=== PATIENT | female | born 1960 | race Caucasian/White ===

== ENCOUNTER → 2016-08-21 | Outpatient (CLI) | payer OTHER ==
[2015-02-05 19:24] VITALS: BP 159/92
[~2016-08-21] MED LIST: ALPR0.25 PO; BARIUM SULFATE 2.1% 450 ML SUSP PO ONE; CHOL500015 PO; LEVO88TA4 PO; LORA-434 PO; MECL-51 PO; MULT9LIQ5 PO; OMEP20CA9 PO; SPIR100T PO
[2016-08-21 10:12] LABS: BASO # 0.1 x10^3/uL (0.0-0.2); BASO % 1 % (0-3); EOS % 2 % (0-3); HEMATOCRIT 43.6 % (36.0-47.0); HEMOGLOBIN 14.3 g/dL (12.0-15.5); LYMPH # 1.5 x10^3/uL (1.0-4.8); LYMPH % 13 % (24-48); MEAN CORPUSCULAR HEMOGLOBIN 26 pg (25-35); MEAN CORPUSCULAR HGB CONC 33 g/dL (31-37); MEAN CORPUSCULAR VOLUME 79 fL (79-100); MONO % 4 % (0-9); NEUT % 80 % (31-73); PLATELET COUNT 339 x10^3/uL (140-400); RED BLOOD COUNT 5.51 x10^6/uL (3.50-5.40); RED CELL DISTRIBUTION WIDTH 15.4 % (11.5-14.5)
[2016-08-21 10:36] LABS: BILIRUBIN,URINE NEGATIVE (NEG); GLUCOSE,URINE NEGATIVE (NEG); NITRITE,URINE NEGATIVE (NEG); PH,URINE 6.5; PROTEIN,URINE NEGATIVE (NEG-TRACE); UROBILINOGEN,URINE 0.2 mg/dL (0.2 mg/dL)
[2016-08-21 10:55] LABS: BACTERIA,URINE FEW /HPF (0-FEW); RBC,URINE 0 /HPF (0-2); SQUAMOUS EPITHELIAL CELL,UR MOD /LPF
--- NOTE | 2016-08-21 12:49 | RAD ---
CT abdomen and pelvis without IV contrast History: Left lower quadrant pain, previous history of diverticulitis. Comparison: CT abdomen pelvis 10/09/2012. Technique: After administration of oral contrast only, helical CT of the abdomen and pelvis was performed from the lung bases through the ischial tuberosities. Axial, sagittal, and coronal reconstructions were obtained. One or more of the following individualized dose reduction techniques were utilized for the study: Automated exposure control Adjustment of mA and/or kV according to patient's size Use of iterative reconstruction technique. Findings: Evaluation of solid organs is limited by lack of intravenous contrast. Liver, spleen, pancreas, gallbladder, and bilateral adrenal glands are unremarkable. Bilateral kidneys are without evidence of stone or obstruction. There is no evidence of bowel obstruction. No free air is identified in the abdomen or pelvis. Appendix appears within normal limits. Urinary bladder is unremarkable. Uterus demonstrates coarse calcification, compatible with degenerated leiomyoma. Right ovary is unremarkable. Left ovary demonstrates a 3.9 cm cyst. Colonic diverticulosis is noted. There is inflammatory change involving the distal descending colon, compatible with acute diverticulitis. No perforation or abscess is identified.. Impression: 1. Acute diverticulitis of the descending colon. No perforation or abscess is seen. 2. 3.9 cm left ovarian cystic lesion. Recommend follow-up pelvic ultrasound in one year.
== END | disposition home or self-care (01) ==
LOC: CT 09:50
PROVIDERS: ATTEND Family Medicine
DX: R10.32 Left lower quadrant pain (principal); Z87.19 Personal history of other diseases of the digestive system
CPT/HCPCS: 36415; 74176; 81001; 85027; 87086

== ENCOUNTER → 2016-09-03 | Outpatient (CLI) | payer OTHER ==
[2015-02-05 19:24] VITALS: BP 159/92
[~2016-09-03] MED LIST changes: -BARIUM SULFATE 2.1% 450 ML SUSP PO ONE; +PRED20TA PO
[2016-09-04 10:21] LABS: CA 125 13.5 U/mL (0.0-38.1)
[2016-09-04 11:26] LABS: FSH 12.7 mIU/mL (.); LUTEINIZING HORMONE 8.3 mIU/mL (.)
== END | disposition home or self-care (01) ==
LOC: LAB 16:13
PROVIDERS: ATTEND Obstetrics & Gynecology
DX: N83.202 Unspecified ovarian cyst, left side (principal)
CPT/HCPCS: 36415; 83001; 83002; 86304

== ENCOUNTER 2016-09-06 07:50 | Emergency (ER) | payer OTHER ==
[~2016-09-06] VITALS: Ht 157.5 cm; Wt 122.5 kg
[~2016-09-06 07:50] MED LIST changes: -PRED20TA PO
--- NOTE | 2016-09-06 08:26 | PHYS DOC ---
Past Medical History Past Medical History: Diverticulitis, GERD, Hypertension, Other Additional Past Medical Histor: chronic back pain, thyroid disease Past Surgical History: Knee Replacement, Tubal ligation Additional Past Surgical Histo: removal of benign cyst to L breast, lap band Alcohol Use: None Drug Use: None Adult General Chief Complaint Chief Complaint: SKIN RASH/ABSCESS HPI HPI Patient is a 56 year old female who presents with diffuse hives starting 2 days ago. She denies any change in household products or new medications. 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 She states that she has also been taking Benadryl with the last dose taken at 0400 today. She feels like the hives and itching are worse today despite the medications. She has not had any difficulty breathing or angioedema. Her PCP is Dr. Vincent. Review of Systems Review of Systems Constitutional: Denies fever or chills. [] Eyes: Denies change in visual acuity, redness, or eye pain. [] HENT: Denies ear pain, nasal congestion or sore throat. Denies angioedema. Respiratory: Denies cough or shortness of breath. [] Musculoskeletal: Denies back pain or joint pain. [] Integument: Reports diffuse hives. Neurologic: Denies headache, focal weakness or sensory changes. [] Current Medications Current Medications Current Medications Medications (Trade) Dose Ordered Sig/Shlomo Start Time Stop Time Status Last Admin Dose Admin Diphenhydramine HCl (Benadryl) 50 mg 1X ONCE 09/06/16 08:30 09/06/16 08:31 DC 09/06/16 08:32 50 MG Famotidine (Pepcid) 20 mg 1X ONCE 09/06/16 08:30 09/06/16 08:31 DC 09/06/16 08:32 20 MG Prednisone (Prednisone) 50 mg 1X ONCE 09/06/16 08:30 09/06/16 08:31 DC 09/06/16 08:32 50 MG Allergies Allergies Allergies Coded Allergies Type Severity Reaction Last Updated Verified Iodinated Contrast Media - Oral and Allergy Severe Anaphylaxis 10/24/14 Yes codeine Allergy Intermediate Nausea 10/24/14 Yes morphine Allergy Intermediate Nausea and Vomiting 10/24/14 Yes cefazolin Allergy Mild Hives 10/24/14 Yes Physical Exam Physical Exam Constitutional: Well developed, well nourished, no acute distress, non-toxic appearance. [] HENT: Normocephalic, atraumatic, bilateral external ears normal, oropharynx moist, no oral exudates, nose normal. No angioedema. Eyes: PERRLA, EOMI, conjunctiva normal, no discharge. [] Neck: Normal range of motion, no tenderness, supple, no stridor. [] Cardiovascular: Heart rate regular rhythm, no murmur [] Lungs & Thorax: Bilateral breath sounds clear to auscultation without wheezes, rales, or rhonchi. Skin: Warm, dry. Diffuse urticaria. Back: No tenderness, no CVA tenderness. [] Extremities: No tenderness, no cyanosis, no clubbing, ROM intact, no edema. [] Neurologic: Alert and oriented X 3, normal motor function, normal sensory function, no focal deficits noted. [] Psychologic: Affect normal, judgement normal, mood normal. [] Current Patient Data Vital Signs Vital Signs Date Time Temp Pulse Resp B/P Pulse Ox O2 Delivery O2 Flow Rate FiO2 09/06/16 08:05 99.0 115 18 96 Room Air 99.0 EKG EKG [] Radiology/Procedures Radiology/Procedures [] Course & Med Decision Making Course & Med Decision Making Pertinent Labs and Imaging studies reviewed. (See chart for details) The patient presents with urticaria of unknown etiology. She had a steroid injection yesterday and has been taking Benadryl without relief. She does not have any signs of anaphylaxis. She is given IM Benadryl and po Pepcid and prednisone in the emergency department. She is discharged home with prescription for prednisone and instructions to continue Benadryl and Pepcid at home. Return precautions were discussed. The patient verbalizes understanding and agrees with plan. Dragon Disclaimer Dragon Disclaimer This electronic medical record was generated, in whole or in part, using a voice recognition dictation system. Departure Departure Impression: Primary Impression: Urticaria Disposition: 01 HOME, SELF-CARE Condition: IMPROVED Referrals: Suzan VINCENT MD (PCP) Patient Instructions: Hives, [id number] Additional Instructions: You were seen for hives caused by an unknown source. You were given Benadryl, Pepcid, and prednisone in the emergency department. Please complete all of the prescribed steroids, even if your hives have resolved. Begin taking the pills tomorrow. Please follow up with your doctor if your hives continue. Return to the emergency department if you have difficulty breathing, swelling of the lips or tongue, or other new or concerning symptoms. Scripts Prednisone 20 Mg [id number] Mg PO DAILY 4 Days Begin taking on 09/07/16. Prov:MAI ANAYA 09/06/16 MAI ANAYA Sep 06, 2016 08:26
[2016-09-06] MEDS ORDERED: FAMOTIDINE 20 MG TABLET. PO ONE (08:30)
[2016-09-06] MEDS ORDERED: DIPHENHYDRAMINE 50 MG/ML VIAL IM ONE (08:30)
[2016-09-06] MEDS ORDERED: PREDNISONE 10 MG TABLET PO ONE (08:30)
[2016-09-06] MEDS ORDERED: PRED20TA PO (09:08)
[2016-09-06 10:02] VITALS: BP 131/81
== END 2016-09-06 10:23 | disposition home or self-care (01) ==
LOC: ER 07:50
DX: L50.9 Urticaria, unspecified (principal); I10 Essential (primary) hypertension; G89.29 Other chronic pain; Z88.5 Allergy status to narcotic agent; Z88.6 Allergy status to analgesic agent; Z88.1 Allergy status to other antibiotic agents; Z91.041 Radiographic dye allergy status
CPT/HCPCS: 96372; 99283; J1200; J7512

== ENCOUNTER → 2016-11-18 | Outpatient (CLI) | payer OTHER ==
[~2016-11-18] MED LIST changes: +PRED20TA PO
[2016-11-18 15:45] LABS: BASO # 0.1 x10^3/uL (0.0-0.2); BASO % 1 % (0-3); EOS % 2 % (0-3); HEMATOCRIT 43.2 % (36.0-47.0); HEMOGLOBIN 13.7 g/dL (12.0-15.5); LYMPH # 1.9 x10^3/uL (1.0-4.8); LYMPH % 17 % (24-48); MEAN CORPUSCULAR HEMOGLOBIN 26 pg (25-35); MEAN CORPUSCULAR HGB CONC 32 g/dL (31-37); MEAN CORPUSCULAR VOLUME 82 fL (79-100); MONO % 6 % (0-9); NEUT % 74 % (31-73); PLATELET COUNT 273 x10^3/uL (140-400); RED BLOOD COUNT 5.28 x10^6/uL (3.50-5.40); RED CELL DISTRIBUTION WIDTH 16.1 % (11.5-14.5); WHITE BLOOD COUNT 11.2 x10^3/uL (4.0-11.0)
[2016-11-18 16:08] LABS: % SAT IRON 13 % (15-34); IRON,SERUM 41 ug/dL (50-170)
[2016-11-18 16:10] LABS: ALBUMIN 3.8 g/dL (3.4-5.0); ALBUMIN/GLOBULIN RATIO 0.9 (1.0-1.7); CALCIUM 8.8 mg/dL (8.5-10.1); CREATININE 1.1 mg/dL (0.6-1.0); GFR 51.6; POTASSIUM 3.9 mmol/L (3.5-5.1); TOTAL BILIRUBIN 0.3 mg/dL (0.2-1.0); TOTAL PROTEIN 7.9 g/dL (6.4-8.2)
== END | disposition home or self-care (01) ==
LOC: LAB 15:21
PROVIDERS: ATTEND Family Medicine
DX: R10.84 Generalized abdominal pain (principal); D64.9 Anemia, unspecified
CPT/HCPCS: 36415; 80053; 83540; 83550; 85027

== ENCOUNTER → 2017-04-04 | Outpatient (CLI) | payer OTHER ==
[~2017-04-04] MED LIST changes: +ASCO10002 PO; -CHOL500015 PO; +CHOL500045 PO; +DEXL60CA2 PO; +FERR-36 PO; +LACT1CAP29 PO; +LEVO100T5 PO; +MECL25TA3 PO; +PHEN37.5 PO
--- NOTE | 2017-04-07 14:57 | RAD ---
DATE: 04/07/2017 EXAM: DIGITAL SCREEN BILAT W/CAD HISTORY: Screening study. COMPARISON: 04/03/2016 This study was interpreted with the benefit of Computerized Aided Detection (CAD). The breast parenchyma is heterogeneously dense, which could reduce sensitivity of mammography. Breast parenchyma level C. FINDINGS: Digital MLO and CC mammograms of both breasts were obtained. Comparison study is dated 04/03/2016. The breast parenchyma is heterogeneously dense which can obscure a lesion on mammography (breast density code C). No spiculated mass is seen. Benign-appearing calcifications are seen scattered throughout both breasts. No malignant appearing calcification or area of architectural distortion is noted. Since the previous examination there has been no significant interval change. IMPRESSION: BI-RADS Category 1, negative. There is no mammographic evidence of malignancy. Routine yearly screening mammography is recommended for follow-up. BI-RADS CATEGORY: 1 NEGATIVE RECOMMENDED FOLLOW-UP: 12M 12 MONTH FOLLOW-UP PQRS compliance statement: Patient information was entered into a reminder system with a target due date 04/07/2018 for the next mammogram. Mammography is a sensitive method for finding small breast cancers, but it does not detect them all and is not a substitute for careful clinical examination. A negative mammogram does not negate a clinically suspicious finding and should not result in delay in biopsying a clinically suspicious abnormality. "Our facility is accredited by the [employer] Mammography [employer]."
== END | disposition home or self-care (01) ==
LOC: MAMMO 15:16
PROVIDERS: ATTEND Family Medicine
DX: Z12.31 Encounter for screening mammogram for malignant neoplasm of breast (principal)
CPT/HCPCS: G0202; 77067

== ENCOUNTER → 2017-12-09 | Day surgery (SDC) | payer OTHER ==
[~2017-12-09] MED LIST changes: -ALPR0.25 PO; -ASCO10002 PO; -CHOL500045 PO; -DEXL60CA2 PO; -FERR-36 PO; -LACT1CAP29 PO; -LEVO100T5 PO; -LEVO88TA4 PO; +LIDOCAINE 1% PF 2 ML VIAL. ID; +LIDOCAINE 2% PF Vial for OR 5 ML VIAL.; -LORA-434 PO; -MECL-51 PO; -MECL25TA3 PO; -MULT9LIQ5 PO; -OMEP20CA9 PO; +ONDANSETRON PF 4 MG/2 ML VIAL. IV; -PHEN37.5 PO; -PRED20TA PO; +PROCHLORPERAZINE 10 MG/2 ML VIAL. IV; +PROPOFOL 0 ML IV; -SPIR100T PO; +fentaNYL PF VIAL 100 MCG/2 ML VIAL IV
[2017-12-09] MEDS: IV RINGERS,LACTATED 1000ML 1,000 ML IV (12:49)
== END | disposition home or self-care (01) ==
LOC: ENDOS 12:18
DX: K29.50 Unspecified chronic gastritis without bleeding (principal); K21.9 Gastro-esophageal reflux disease without esophagitis; E03.9 Hypothyroidism, unspecified; I10 Essential (primary) hypertension; E78.5 Hyperlipidemia, unspecified; D50.9 Iron deficiency anemia, unspecified; F41.0 Panic disorder [episodic paroxysmal anxiety]; H81.09 Meniere's disease, unspecified ear; G43.909 Migraine, unspecified, not intractable, without status migrainosus; Z98.51 Tubal ligation status; Z98.890 Other specified postprocedural states; Z98.84 Bariatric surgery status; Z83.6 Family history of other diseases of the respiratory system; Z80.1 Family history of malignant neoplasm of trachea, bronchus and lung; Z80.3 Family history of malignant neoplasm of breast; Z82.49 Family history of ischemic heart disease and other diseases of the circulatory system; Z88.5 Allergy status to narcotic agent; Z91.041 Radiographic dye allergy status; Z88.8 Allergy status to other drugs, medicaments and biological substances; Z79.899 Other long term (current) drug therapy
CPT/HCPCS: 43239; J2704

== ENCOUNTER → 2018-01-07 | Outpatient (CLI) | payer OTHER ==
[2018-01-07 09:13] LABS: IRON,SERUM 65 ug/dL (50-170)
[2018-01-07 09:14] LABS: URIC ACID 5.6 mg/dL (2.6-6.0)
[2018-01-07 09:14] LABS: CHOLESTEROL 164 mg/dL (0-200); HDLC 42 mg/dL (40-60); LDLC 103 mg/dL (0-100); NON-HDL CHOLESTEROL 122 mg/dL (0-129); TRIGLYCERIDES 94 mg/dL (0-150); VLDLC 19 mg/dL (0-40)
[2018-01-07 09:15] LABS: CHOLESTEROL/HDL RATIO 3.9
[2018-01-07 09:48] LABS: SEDIMENTATION RATE 29 (0-25)
== END | disposition home or self-care (01) ==
LOC: LAB 08:23
DX: M79.1 Myalgia (principal); D50.9 Iron deficiency anemia, unspecified; R79.89 Other specified abnormal findings of blood chemistry
CPT/HCPCS: 36415; 80061; 83540; 84550; 85651; 86141

== ENCOUNTER → 2018-01-19 | Outpatient (CLI) | payer OTHER ==
[2018-01-19 12:44] LABS: ALBUMIN 3.4 g/dL (3.4-5.0); ALBUMIN/GLOBULIN RATIO 0.8 (1.0-1.7); ALK PHOS 60 U/L (46-116); ALT (SGPT) 16 U/L (14-59); ANION GAP 9 (6-14); AST (SGOT) 8 U/L (15-37); BLOOD UREA NITROGEN 15 mg/dL (7-20); BUN/CREATININE RATIO 15 (6-20); CARBON DIOXIDE 26 mmol/L (21-32); CHLORIDE 102 mmol/L (98-107); CREATINE KINASE 42 U/L (26-192); GFR 57.4; GLUCOSE 97 mg/dL (70-99); POTASSIUM 4.1 mmol/L (3.5-5.1); SODIUM 137 mmol/L (136-145); TOTAL BILIRUBIN 0.4 mg/dL (0.2-1.0); TOTAL PROTEIN 7.9 g/dL (6.4-8.2)
[2018-01-19 20:15] LABS: RHEUMATOID FACTOR <10.0 IU/mL (0.0-13.9)
[2018-01-21 17:17] LABS: ANA INTERP Positive (.)
== END | disposition home or self-care (01) ==
LOC: LAB 11:48
DX: M79.1 Myalgia (principal); M25.50 Pain in unspecified joint
CPT/HCPCS: 36415; 80053; 82550; 86038; 86431

== ENCOUNTER → 2018-01-30 | Outpatient (CLI) | payer OTHER ==
[2018-01-30 22:15] LABS: ESTRADIOL LEVEL 39.1 pg/mL (.)
[2018-01-30 22:15] LABS: FSH 19.5 mIU/mL (.)
== END | disposition home or self-care (01) ==
LOC: LAB 11:37
DX: N91.2 Amenorrhea, unspecified (principal)
CPT/HCPCS: 36415; 82670; 83001

== ENCOUNTER → 2018-03-02 | Outpatient (CLI) | payer OTHER ==
[2018-03-03 22:18] LABS: HEMOGLOBIN A1C 5.4 % (4.8-5.6)
== END | disposition home or self-care (01) ==
LOC: LAB 07:51
DX: Z13.1 Encounter for screening for diabetes mellitus (principal); I10 Essential (primary) hypertension; E78.5 Hyperlipidemia, unspecified; M17.12 Unilateral primary osteoarthritis, left knee; E03.9 Hypothyroidism, unspecified; G43.909 Migraine, unspecified, not intractable, without status migrainosus; K21.9 Gastro-esophageal reflux disease without esophagitis; D50.9 Iron deficiency anemia, unspecified; R79.89 Other specified abnormal findings of blood chemistry; Z87.19 Personal history of other diseases of the digestive system; Z80.3 Family history of malignant neoplasm of breast; Z80.1 Family history of malignant neoplasm of trachea, bronchus and lung; Z98.84 Bariatric surgery status; Z82.49 Family history of ischemic heart disease and other diseases of the circulatory system
CPT/HCPCS: 36415; 83036

== ENCOUNTER → 2018-04-07 | Outpatient (CLI) | payer OTHER ==
[2017-12-09 13:25] VITALS: BP 112/58
[~2018-04-07] MED LIST changes: +ALPR0.25 PO; +ASCO10002 PO; +CHOL500045 PO; +DEXL60CA2 PO; +FERR-36 PO; +LACT1CAP29 PO; +LEVO100T5 PO; +LEVO88TA4 PO; -LIDOCAINE 1% PF 2 ML VIAL. ID; -LIDOCAINE 2% PF Vial for OR 5 ML VIAL.; +LORA-434 PO; +MECL-51 PO; +MECL25TA3 PO; +MULT9LIQ5 PO; +OMEP20CA9 PO; -ONDANSETRON PF 4 MG/2 ML VIAL. IV; +PHEN37.5 PO; +PRAV40TA2 PO; +PRED20TA PO; -PROCHLORPERAZINE 10 MG/2 ML VIAL. IV; -PROPOFOL 0 ML IV; +SPIR100T PO; -fentaNYL PF VIAL 100 MCG/2 ML VIAL IV
--- NOTE | 2018-04-08 09:35 | RAD ---
DATE: 04/07/2018 EXAM: MAMMO ENEIDA SCREENING BILATERAL HISTORY: Routine screening COMPARISON: 04/04/2017 This study was interpreted with the benefit of Computerized Aided Detection (CAD). The breast parenchyma is heterogeneously dense, which could reduce sensitivity of mammography. Breast parenchyma level C. FINDINGS: 2-D and 3-D tomosynthesis imaging was performed in CC and MLO projections. The breasts are quite heterogeneous and multinodular in character. No spiculated mass or architectural distortion is seen. Numerous bilateral microcalcifications are again noted. The distribution suggests a benign etiology. IMPRESSION: Stable mammograms without evidence of malignancy. BI-RADS CATEGORY: 2 BENIGN FINDING(S) RECOMMENDED FOLLOW-UP: 12M 12 MONTH FOLLOW-UP PQRS compliance statement: Patient information was entered into a reminder system with a target due date for the next mammogram. Mammography is a sensitive method for finding small breast cancers, but it does not detect them all and is not a substitute for careful clinical examination. A negative mammogram does not negate a clinically suspicious finding and should not result in delay in biopsying a clinically suspicious abnormality. "Our facility is accredited by the [employer] Mammography [employer]."
== END | disposition home or self-care (01) ==
LOC: MAMMO 15:19
PROVIDERS: ATTEND Family Medicine
DX: Z12.31 Encounter for screening mammogram for malignant neoplasm of breast (principal); I10 Essential (primary) hypertension; E78.5 Hyperlipidemia, unspecified; M17.12 Unilateral primary osteoarthritis, left knee; E03.9 Hypothyroidism, unspecified; G43.909 Migraine, unspecified, not intractable, without status migrainosus; K21.9 Gastro-esophageal reflux disease without esophagitis; Z86.2 Personal history of diseases of the blood and blood-forming organs and certain disorders involving the immune mechanism; Z87.19 Personal history of other diseases of the digestive system; Z88.1 Allergy status to other antibiotic agents; Z88.8 Allergy status to other drugs, medicaments and biological substances; Z88.5 Allergy status to narcotic agent; Z83.6 Family history of other diseases of the respiratory system; Z80.3 Family history of malignant neoplasm of breast; Z80.1 Family history of malignant neoplasm of trachea, bronchus and lung
CPT/HCPCS: 77063; 77067

== ENCOUNTER → 2018-10-26 | Outpatient (CLI) | payer OTHER ==
[2017-12-09 13:25] VITALS: BP 112/58
[~2018-10-26] MED LIST changes: +CYCL10TA2 PO; +DICL50TA2 PO; +HYDR-3164 PO; +OMEP20CA10 PO; -OMEP20CA9 PO; +ONDA4TAB12 PO
--- NOTE | 2018-10-26 16:15 | RAD ---
PQRS Compliance statement: One or more of the following individualized dose reduction techniques were utilized for this examination: 1. Automated exposure control. 2. Adjustment of the mA and/or kV according to patient size. 3. Use of iterative reconstruction technique. Indication:DIVERTICULITIS OF LARGE INTESTINE
PO ONLY READI-CAT DUE TO IODINE ALLERGY
PREVIOUS TECHNIQUE: CT abdomen and pelvis without IV contrast with multiplanar reformats. COMPARISON: 08/21/2016 FINDINGS: Limited evaluation of solid abdominal and pelvic organs due to lack of IV contrast. Heart is normal in size. No pericardial or pleural effusion. Clear lung bases. Noncontrast appearance of the liver, spleen, gallbladder, pancreas, adrenals and kidneys is within normal limits. No enlarged retroperitoneal or pelvic adenopathy. No free pelvic fluid or ascites. Calcified fibroid is seen in the fundus of the gallbladder. Redemonstrated is a 6.0 x 4.5 cm low attenuating lesion in the left ovary, previously 4.7 x 4.1 cm. Urinary bladder demonstrates no radiopaque stones. Sigmoid and descending colon diverticulosis. No diverticulitis. No bowel obstruction. Normal appendix. No pneumoperitoneum. No suspicious bony lesion. IMPRESSION: Limited evaluation of solid abdominal and pelvic organs due to lack of IV contrast. 1. Sigmoid and descending colon diverticulosis without diverticulitis. 2. Calcified fibroid in the fundus of the uterus. 3. Slight interval increase in the size of left ovarian low attenuating lesion most likely simple cysts. Nonemergent ultrasound of the pelvis recommended. Electronically signed by: Jt Boggs DO (10/26/2018 4:12 PM) [facility]
== END | disposition home or self-care (01) ==
LOC: CT 11:53
PROVIDERS: ATTEND Family Medicine
DX: K57.30 Diverticulosis of large intestine without perforation or abscess without bleeding (principal); D25.9 Leiomyoma of uterus, unspecified
CPT/HCPCS: 74176

== ENCOUNTER → 2018-11-11 | Outpatient (CLI) | payer OTHER ==
[2017-12-09 13:25] VITALS: BP 112/58
--- NOTE | 2018-11-11 16:01 | RAD ---
Lumbar spine, 5 views, 11/11/2018: HISTORY: Low back pain The lumbar vertebral heights are well-maintained. The intervertebral disc spaces are fairly well preserved. There are mild scattered marginal spurs. There are moderate sclerotic changes involving the facet joints bilaterally at L4-5 and L5-S1. There is a minimal associated anterolisthesis at L4-5. No fracture is evident. A coarse pelvic calcification is most likely a uterine fibroid. IMPRESSION: 1. Moderate facet joint arthropathy in the lower lumbar spine with a minimal associated anterolisthesis at L4-5. 2. No acute bony abnormality is detected. Electronically signed by: Jak Balbuena MD (11/11/2018 3:58 PM) [facility]
== END | disposition home or self-care (01) ==
LOC: US 15:04
PROVIDERS: ATTEND Family Medicine
DX: M12.88 Other specific arthropathies, not elsewhere classified, other specified site (principal); M43.16 Spondylolisthesis, lumbar region
CPT/HCPCS: 72110

== ENCOUNTER 2018-11-15 14:53 | Emergency (ER) | payer OTHER ==
[~2018-11-15] VITALS: Ht 154.9 cm; Wt 119.3 kg
[~2018-11-15 14:53] MED LIST changes: -CYCL10TA2 PO; -DICL50TA2 PO; -HYDR-3164 PO; -ONDA4TAB12 PO
[2018-11-15 15:05] VITALS: BP 170/96
--- NOTE | 2018-11-15 15:31 | PHYS DOC ---
Past Medical History Past Medical History: Diverticulitis, GERD, Hypertension, Other Additional Past Medical Histor: chronic back pain, thyroid disease Past Surgical History: Knee Replacement, Tubal ligation Additional Past Surgical Histo: removal of benign cyst to L breast, lap band Alcohol Use: None Drug Use: None Adult General Chief Complaint Chief Complaint: MECHANICAL FALL HPI HPI Patient is a 58 year old female with history of hypertension, acid reflex, who presents to the ED today complaining of 8 out of 10 sharp intermittent left hand , left wrist, and left shoulder pain that began yesterday after she stepped off a curb and fell landing on her left side. Patient denies any loss of consciousness. Denies hitting her head on the ground. She states most of her pain is on range of motion especially of the shoulder. Review of Systems Review of Systems Constitutional: Denies fever or chills [] Eyes: Denies change in visual acuity, redness, or eye pain [] HENT: Denies nasal congestion or sore throat [] Respiratory: Denies cough or shortness of breath [] Cardiovascular: No additional information not addressed in HPI [] GI: Denies abdominal pain, nausea, vomiting, bloody stools or diarrhea [] : Denies dysuria or hematuria [] Musculoskeletal: Reports left shoulder pain, left hand and left wrist pain. Integument: Denies rash or skin lesions [] Neurologic: Denies headache, focal weakness or sensory changes [] All other systems were reviewed and found to be within normal limits, except as documented in this note. Allergies Allergies Allergies Coded Allergies Type Severity Reaction Last Updated Verified Iodinated Contrast- Oral and IV Dye Allergy Severe Anaphylaxis 10/24/14 Yes cefazolin Allergy Intermediate Hives 12/09/17 Yes sulfamethoxazole Allergy Intermediate Hives 12/09/17 Yes trimethoprim Allergy Intermediate Hives 12/09/17 Yes ciprofloxacin Adverse Reaction Severe tendonitis 12/09/17 Yes codeine Adverse Reaction Intermediate Nausea 12/08/17 Yes morphine Adverse Reaction Intermediate Nausea and Vomiting 12/08/17 Yes Physical Exam Physical Exam Constitutional: Well developed, well nourished, no acute distress, non-toxic appearance. [] HENT: Normocephalic, atraumatic, bilateral external ears normal, oropharynx moist, no oral exudates, nose normal. [] Eyes: PERRLA, EOMI, conjunctiva normal, no discharge. [] Neck: Normal range of motion, no tenderness, supple, no stridor. [] Cardiovascular:Heart rate regular rhythm, no murmur [] Lungs & Thorax: Bilateral breath sounds clear to auscultation [] Abdomen: Bowel sounds normal, soft, no tenderness, no masses, no pulsatile masses. [] Skin: Warm, dry, no erythema, no rash. [] Back: No tenderness, no CVA tenderness. [] Extremities: Left upper extremity with no obvious deformity. Tenderness on palpation of the left lateral shoulder. No scaphoid tenderness, tenderness on palpation of the left lateral fifth metacarpal. Limited range of motion to the left shoulder especially raising it above her head due to pain. Full range of motion to the left hand and left wrist. +2 left radial pulse. Adequate radial, medial, ulnar sensation to the left hand. Cap refill less than 2 seconds the left fingers. Neurologic: Alert and oriented X 3, normal motor function, normal sensory function, no focal deficits noted. [] Psychologic: Affect normal, judgement normal, mood normal. [] Current Patient Data Vital Signs Vital Signs Date Time Temp Pulse Resp B/P (MAP) Pulse Ox O2 Delivery O2 Flow Rate FiO2 11/15/18 15:05 98.1 95 18 170/96 (120) 96 Room Air 98.1 EKG EKG [] Radiology/Procedures Radiology/Procedures []PROCEDURE: CT UPPR EXTREMTY WO CONTRST LT Examination: CT left shoulder without contrast HISTORY: History of left shoulder fracture, dislocation COMPARISON: None available. TECHNIQUE: Axial CT images of the left shoulder performed without contrast. Coronal and sagittal reformats are performed Exposure: One or more of the following individualized dose reduction techniques were utilized for this examination: 1. Automated exposure control 2. Adjustment of the mA and/or kV according to patient size 3. Use of iterative reconstruction technique Findings: The humerus head is within the glenoid. Tiny bony density identified medial to the acromion could be capsular calcification or a small osteophyte or a tiny bony avulsion. No significant shoulder joint effusion. The muscle bulk grossly appears unremarkable. IMPRESSION: 1.Tiny bony density identified medial to the acromion could be capsular calcification or a small osteophyte or a tiny bony avulsion. 2. No obvious dislocation identified. Electronically signed by: Coy Hinton MD (11/15/2018 6:39 PM) [id number] DICTATED and SIGNED BY: COY HINTON MD DATE: 11/15/181838 Course & Med Decision Making Course & Med Decision Making Pertinent Labs and Imaging studies reviewed. (See chart for details) This is a 58-year-old female patient presenting today with left shoulder pain, left hand pain, left wrist pain, status post falling yesterday. No loss of consciousness. Left hand x-rays interpreted by Dr. Gramajo here negative for any acute findings. Radiologist called concerning patient's left shoulder x-ray , concern was for an avulsion fracture as well as possible joint effusion and or subluxation. CT of the left upper extremity was obtained. CT of the left upper extremity was noted for -Tiny bony density identified medial to the acromion could be capsular calcification or a small osteophyte or a tiny bony avulsion. No obvious dislocation identified. Patient was provided a sling in the ED. Discharged with instructions to follow- up with orthopedic doctor in the course of this week. Ice elevation encouraged. Dragon Disclaimer Dragon Disclaimer This electronic medical record was generated, in whole or in part, using a voice recognition dictation system. Departure Departure Impression: Primary Impression: Fall from standing Additional Impressions: Sprain of hand, left Avulsion fracture Disposition: 01 HOME, SELF-CARE Condition: STABLE Referrals: Suzan VINCENT MD (PCP) NADINE XAVIER MD follow up in the course of this week Patient Instructions: Avulsion Fracture, Fall Prevention and Home Safety, Joint Sprain Additional Instructions: You were seen in the emergency room for left hand and left shoulder pain after falling. Your left shoulder CT was noted for a possible avulsion fracture of the shoulder or calcified bone. Please contact the provided orthopedic doctor and set up a follow-up appointment. Try to ice and elevate the extremity. Scripts Hydrocodone/Apap 5-325 (NORCO 5-325 TABLET) 1 Each Tablet 1 TAB PO Q8HRS, #12 TAB Prov: [employer] 11/15/18 Cyclobenzaprine Hcl (CYCLOBENZAPRINE HCL) 10 Mg Tablet 1 TAB PO TID, #30 TAB Prov: [employer] 11/15/18 Diclofenac Potassium (DICLOFENAC POTASSIUM) 50 Mg Tablet 1 TAB PO BID, #20 TAB 0 Refills Prov: OLGAADEVEN APRN 11/15/18 Ondansetron (ONDANSETRON ODT) 4 Mg Tab.rapdis 1 TAB PO PRN Q6-8HRS, #16 TAB Prov: DEVEN MAYNARD APRN 11/15/18 Problem Qualifiers Primary Impression: Fall from standing Encounter type: initial encounter Qualified Codes: W19.XXXA - Unspecified fall, initial encounter Additional Impressions: Sprain of hand, left Encounter type: initial encounter Qualified Codes: S63.92XA - Sprain of unspecified part of left wrist and hand, initial encounter DEVEN MAYNARD APRN Nov 15, 2018 15:31
--- NOTE | 2018-11-15 17:34 | RAD ---
HAND LEFT 3V, SHOULDER 2+V LEFT (left shoulder AP internal and external rotation, transscapular Y) INDICATION: FELL LANDING ON HAND JOLTING UP INTO SHOULDER. PAIN IN LEFT HAND 4TH & 5TH METACARPAL POSTERIOR & MEDIAL SIDE WRIST COMPARISON: None. FINDINGS: Apparent lucency over the left humeral surgical neck likely relates to overlying skin fold. Increased acromiohumeral distance measuring up to 1.7 cm. Small ossific density is only seen on one of the frontal views medial to the acromion. Bony mineralization is normal for the patient's age. No significant soft tissue abnormality. No radiopaque foreign body. SHOULDER IMPRESSION: 1. No displaced fracture. 2. Apparent lucency overlying the left humeral surgical neck likely relates to overlying skin fold. 3. Tiny ossific density is seen on the second frontal view medial to the acromion. It is possible that this relates to degenerative changes given the vicinity to the AC joint. A small age-indeterminate avulsion fracture is not excluded. 4. Increased acromiohumeral distance measuring up to 1.7 cm. The humeral head appears to articulate appropriately within the glenoid fossa on the transscapular Y view. Findings could relate to a joint effusion. Ultrasound would be able to demonstrate if a joint effusion is present, but a CT of the shoulder would provide more anatomical information. Alternatively, MRI shoulder could be obtained. The findings were reported to DEVEN MAYNARD at 11/15/2018 5:28 PM. FOR INTERNAL CODING PURPOSES RESULT CODE: (C) HAND LEFT 3V (PA, oblique, lateral) INDICATION: FELL LANDING ON HAND JOLTING UP INTO SHOULDER. PAIN IN LEFT HAND 4TH & 5TH METACARPAL POSTERIOR & MEDIAL SIDE WRIST COMPARISON: None. FINDINGS: No displaced fracture or malalignment. There appear to be lunate subchondral cysts. The joint spaces are maintained. Bony mineralization is normal for the patient's age. No significant soft tissue abnormality. No radiopaque foreign body. WRIST IMPRESSION: No displaced hand fracture or malalignment. Electronically signed by: Mustapha Beltre MD (11/15/2018 5:30 PM) [facility]
--- NOTE | 2018-11-15 18:42 | RAD ---
Examination: CT left shoulder without contrast HISTORY: History of left shoulder fracture, dislocation COMPARISON: None available. TECHNIQUE: Axial CT images of the left shoulder performed without contrast. Coronal and sagittal reformats are performed Exposure: One or more of the following individualized dose reduction techniques were utilized for this examination: 1. Automated exposure control 2. Adjustment of the mA and/or kV according to patient size 3. Use of iterative reconstruction technique Findings: The humerus head is within the glenoid. Tiny bony density identified medial to the acromion could be capsular calcification or a small osteophyte or a tiny bony avulsion. No significant shoulder joint effusion. The muscle bulk grossly appears unremarkable. IMPRESSION: 1.Tiny bony density identified medial to the acromion could be capsular calcification or a small osteophyte or a tiny bony avulsion. 2. No obvious dislocation identified. Electronically signed by: Coy Hinton MD (11/15/2018 6:39 PM) [facility]
[2018-11-15] MEDS ORDERED: ONDA4TAB12 PO (18:58)
[2018-11-15] MEDS ORDERED: CYCL10TA2 PO (18:58)
[2018-11-15] MEDS ORDERED: HYDR-3164 PO (18:58)
[2018-11-15] MEDS ORDERED: DICL50TA2 PO (18:58)
== END 2018-11-15 19:06 | disposition home or self-care (01) ==
LOC: ER 14:53
DX: S63.92XA Sprain of unspecified part of left wrist and hand, initial encounter (principal); M25.512 Pain in left shoulder; M79.642 Pain in left hand; K21.9 Gastro-esophageal reflux disease without esophagitis; I10 Essential (primary) hypertension; G89.29 Other chronic pain; Z91.041 Radiographic dye allergy status; Z88.1 Allergy status to other antibiotic agents; Z88.2 Allergy status to sulfonamides; Z88.5 Allergy status to narcotic agent; Z88.8 Allergy status to other drugs, medicaments and biological substances; W10.1XXA Fall (on)(from) sidewalk curb, initial encounter; Y93.89 Activity, other specified; Y92.89 Other specified places as the place of occurrence of the external cause; Y99.8 Other external cause status
CPT/HCPCS: 73030; 73130; 73200; 99284-25

== ENCOUNTER 2018-12-17 00:21 | Inpatient (IN) | payer OTHER ==
[~2018-12-17] VITALS: Ht 157.5 cm; Wt 119.3 kg
[~2018-12-17 00:21] MED LIST changes: +CYCL10TA2 PO; +DICL50TA2 PO; +HYDR-3164 PO; +ONDA4TAB12 PO
[2018-12-17] MEDS ORDERED: LIDO:MAALOX 1:1 20 ML SINGLE DOSE. PO PRN (00:45)
--- NOTE | 2018-12-17 00:57 | PHYS DOC ---
Past Medical History Past Medical History: Diverticulitis, GERD, High Cholesterol, Hypertension, Other Additional Past Medical Histor: chronic back pain, thyroid disease (KANA CUEVAS APRN) Past Surgical History: Knee Replacement, Tubal ligation Additional Past Surgical Histo: removal of benign cyst to L breast, lap band & lap band removal (KANA CUEVAS APRN) Alcohol Use: None Drug Use: None (KANA CUEVAS APRN) Adult General Chief Complaint Chief Complaint: ABDOMINAL PAIN HPI HPI Patient is a 58-year-old female that presents to the ER this evening with upper abdominal pain since 8:00. Associated symptoms include nausea and vomiting. Patient has a history of lap band surgery and had it removed as it eroded in her stomach and hx of GERD. Still has her gallbladder and appendix. States that she ate dinner at 7:00 and then threw up. His been having 10 out of 10 pain since that time states the character of the pain as pressure. Has not tried any interventions at home. Patient is a poor historian. (KANA CUEVAS APRN) Review of Systems Review of Systems Constitutional: Denies fever or chills [] Eyes: Denies change in visual acuity, redness, or eye pain [] HENT: Denies nasal congestion or sore throat [] Respiratory: Denies cough or shortness of breath [] Cardiovascular: Has epigastric pain, denies syncope GI: Reports epigastric pain, nausea,and vomiting denies bloody stools or diarrhea [] : Denies dysuria or hematuria [] Musculoskeletal: Denies back pain or joint pain [] Integument: Denies rash or skin lesions [] Neurologic: Denies headache, focal weakness or sensory changes [] Endocrine: Denies polyuria or polydipsia [] Complete systems were reviewed and found to be within normal limits, except as documented in this note. (KANA CUEVAS APRN) Current Medications Current Medications Current Medications Medications (Trade) Dose Ordered Sig/Shlomo Start Time Stop Time Status Last Admin Dose Admin Ceftriaxone Sodium (Rocephin) 1 gm 1X ONCE 12/17/18 03:30 12/17/18 03:33 DC Fentanyl Citrate (Fentanyl 2ml Vial) 50 mcg 1X ONCE 12/17/18 01:30 12/17/18 01:31 DC 12/17/18 01:35 50 MCG Hydromorphone HCl (Dilaudid) 1 mg 1X ONCE 12/17/18 03:00 12/17/18 03:01 DC 12/17/18 02:35 1 MG Ketorolac Tromethamine (Toradol 30mg Vial) 30 mg 1X ONCE 12/17/18 04:00 12/17/18 04:01 DC 12/17/18 03:47 30 MG Levofloxacin/ Dextrose 100 ml @ 100 mls/hr 1X ONCE 12/17/18 04:00 12/17/18 04:59 12/17/18 04:02 100 MLS/HR Multi-Ingredient Mouthwash/Gargle (Gi Cocktail) 20 ml PRN QID PRN 12/17/18 00:45 12/17/18 00:52 20 ML Ondansetron HCl (Zofran) 4 mg 1X ONCE 12/17/18 01:30 12/17/18 01:31 DC 12/17/18 01:34 4 MG Sodium Chloride 1,000 ml @ 150 mls/hr Q6H40M 12/17/18 04:40 12/18/18 04:39 UNV (PERRY MISTRY MD) Allergies Allergies Allergies Coded Allergies Type Severity Reaction Last Updated Verified Iodinated Contrast- Oral and IV Dye Allergy Severe Anaphylaxis 10/24/14 Yes cefazolin Allergy Intermediate Hives 12/09/17 Yes sulfamethoxazole Allergy Intermediate Hives 12/09/17 Yes trimethoprim Allergy Intermediate Hives 12/09/17 Yes ciprofloxacin Adverse Reaction Severe tendonitis 12/09/17 Yes codeine Adverse Reaction Intermediate Nausea 12/08/17 Yes morphine Adverse Reaction Intermediate Nausea and Vomiting 12/08/17 Yes (PERRY MISTRY MD) Physical Exam Physical Exam Constitutional: Well developed, well nourished, no acute distress, non-toxic ap pearance. [] HENT: Normocephalic, atraumatic, bilateral external ears normal, nose normal. [] Eyes: PERRLA, conjunctiva normal, no discharge. [] Neck: Normal range of motion, supple, no stridor. [] Cardiovascular:Heart rate regular rhythm, no murmur [] Lungs & Thorax: Bilateral breath sounds clear to auscultation [] Abdomen: Bowel sounds normal, soft, no tenderness, no masses, no pulsatile masses. [] Skin: Warm, dry, no erythema, no rash. [] Extremities: No cyanosis, no clubbing, ROM intact, no edema. [] Neurologic: Alert and oriented X 3, normal motor function, normal sensory function, no focal deficits noted. [] Psychologic: Affect anxious, judgement normal, mood anxious. [] (KANA CUEVAS APRN) Current Patient Data Vital Signs Vital Signs Date Time Temp Pulse Resp B/P (MAP) Pulse Ox O2 Delivery O2 Flow Rate FiO2 12/17/18 04:00 64 173/74 (107) 98 Nasal Cannula 2.0 12/17/18 02:40 14 12/17/18 00:37 97.5 97.5 (PERRY MISTRY MD) Lab Values Laboratory Tests Test 12/17/18 01:25 12/17/18 02:15 12/17/18 02:17 White Blood Count 15.4 x10^3/uL (4.0-11.0) H Red Blood Count 5.68 x10^6/uL (3.50-5.40) H Hemoglobin 15.3 g/dL (12.0-15.5) Hematocrit 45.9 % (36.0-47.0) Mean Corpuscular Volume 81 fL (79-100) Mean Corpuscular Hemoglobin 27 pg (25-35) Mean Corpuscular Hemoglobin Concent 33 g/dL (31-37) Red Cell Distribution Width 15.7 % (11.5-14.5) H Platelet Count 257 x10^3/uL (140-400) Neutrophils (%) (Auto) 86 % (31-73) H Lymphocytes (%) (Auto) 7 % (24-48) L Monocytes (%) (Auto) 6 % (0-9) Eosinophils (%) (Auto) 1 % (0-3) Basophils (%) (Auto) 0 % (0-3) Neutrophils # (Auto) 13.3 x10^3uL (1.8-7.7) H Lymphocytes # (Auto) 1.0 x10^3/uL (1.0-4.8) Monocytes # (Auto) 0.9 x10^3/uL (0.0-1.1) Eosinophils # (Auto) 0.1 x10^3/uL (0.0-0.7) Basophils # (Auto) 0.1 x10^3/uL (0.0-0.2) Segmented Neutrophils % 86 % (35-66) H Band Neutrophils % 4 % (0-9) Lymphocytes % 6 % (24-48) L Monocytes % 3 % (0-10) Eosinophils % 1 % (0-5) Platelet Estimate Adequate (ADEQUATE) Urine Collection Type Void Urine Color Yellow Urine Clarity Cloudy Urine pH 6.5 Urine Specific Shelby >=1.030 Urine Protein Negative mg/dL (NEG-TRACE) Urine Glucose (UA) Negative mg/dL (NEG) Urine Ketones (Stick) 15 mg/dL (NEG) Urine Blood Negative (NEG) Urine Nitrite Negative (NEG) Urine Bilirubin Negative (NEG) Urine Urobilinogen Dipstick 1.0 mg/dL (0.2 mg/dL) Urine Leukocyte Esterase Moderate (NEG) Urine RBC 6-10 /HPF (0-2) Urine WBC >40 /HPF (0-4) Urine Squamous Epithelial Cells Mod /LPF Urine Bacteria Mod /HPF (0-FEW) Urine Mucus Marked /LPF Sodium Level 137 mmol/L (136-145) Potassium Level 3.2 mmol/L (3.5-5.1) L Chloride Level 97 mmol/L (98-107) L Carbon Dioxide Level 31 mmol/L (21-32) Anion Gap 9 (6-14) Blood Urea Nitrogen 15 mg/dL (7-20) Creatinine 1.3 mg/dL (0.6-1.0) H Estimated GFR (Cockcroft-Gault) 42.2 BUN/Creatinine Ratio 12 (6-20) Glucose Level 166 mg/dL (70-99) H Calcium Level 9.4 mg/dL (8.5-10.1) Total Bilirubin 1.0 mg/dL (0.2-1.0) Aspartate Amino Transferase (AST) 35 U/L (15-37) Alanine Aminotransferase (ALT) 35 U/L (14-59) Alkaline Phosphatase 57 U/L (46-116) Troponin I Quantitative < 0.017 ng/mL (0.000-0.055) Total Protein 7.8 g/dL (6.4-8.2) Albumin 3.7 g/dL (3.4-5.0) Albumin/Globulin Ratio 0.9 (1.0-1.7) L Lipase 166 U/L (73-393) Laboratory Tests 12/17/18 01:25 Laboratory Tests 12/17/18 02:17 (PERRY MISTRY MD) EKG EKG [] (KANA CUEVAS APRN) Radiology/Procedures Radiology/Procedures [] (KANA CUEVAS APRN) Radiology/Procedures [facility] [address] [place] [address] IMAGING REPORT Signed PATIENT: SHERRON LIMA ACCOUNT: [id number] : 1960 LOCATION: ER AGE: 58 SEX: F EXAM STATUS: REG ER ORD. PHYSICIAN: PERRY MISTRY MD REASON: abdominal pain with leukocytosis PROCEDURE: CT ABDOMEN PELVIS WO CONTRAST Examination: CT of the abdomen pelvis without contrast HISTORY: History of abdominal pain, leukocytosis. COMPARISON: 08/21/2016 TECHNIQUE: Axial CT images of the abdomen pelvis were performed without contrast. Coronal and sagittal reformats performed Exposure: One or more of the following individualized dose reduction techniques were utilized for this examination: 1. Automated exposure control 2. Adjustment of the mA and/or kV according to patient size 3. Use of iterative reconstruction technique FINDINGS: Mild bibasilar lung airspace opacities. No evidence of free air identified in the abdomen. The evaluation of the solid organs is limited due to lack of IV contrast. The evaluation of bowel is limited due to lack of oral contrast. The visualized liver grossly appears unremarkable. The gallbladder is mildly distended. There is mild fat stranding identified about the gallbladder and extending along the common bile duct and the duodenum extending up to the head of the pancreas. The visualized spleen, adrenals grossly appears unremarkable The stomach is mildly distended The small bowel is nondilated. Appendix is normal. Feces and gas noted in the colon Multiple colonic diverticulosis identified. Urinary bladder is mildly distended. There is a cystic structure identified in the left adnexa measuring 5.9 cm. There is a calcified fibroid identified in the uterus measuring 2 cm No evidence of lytic bony destructive lesion. IMPRESSION: 1. Mild inflammatory fat stranding identified about the gallbladder and extending along the common bile duct and the duodenum and extending to the head of the pancreas. Differential includes cholecystitis, cholangitis, duodenitis or groove pancreatitis. Correlate with lab values. 2. Multiple colonic diverticulosis. 3. 5.9 cm cyst or cystic lesion identified in the left ovary Electronically signed by: Coy Hinton MD (12/17/2018 4:12 AM) [facility] DICTATED and SIGNED BY: COY HINTON MD DATE: 12/17/18 0412 [facility] [address] [place] [address] IMAGING REPORT Signed PATIENT: SHERRON LIMA ACCOUNT: [id number] : 1960 LOCATION: ER AGE: 58 SEX: F EXAM STATUS: REG ER ORD. PHYSICIAN: KANA CUEVAS APRN REASON: r/o familia PROCEDURE: ABDOMEN COMPLETE Examination: Ultrasound abdomen HISTORY: History of cholecystitis. COMPARISON: None available. FINDINGS: The pancreas is poorly visualized. The liver measures 17.4 cm. There is increased echogenicity noted in the liver likely hepatic steatosis. The right kidney measures 11.4 cm in length. The left kidney measures 11.9 cm in length. In the right kidney, there is a 1.2 cm echogenicity probably angiomyolipoma. The spleen appears unremarkable. No evidence of gallstones identified. The gallbladder wall thickness measures 2.5 mm. The common bile duct measures 4.6 mm in transverse dimension. IMPRESSION: 1. No evidence of gallstones. 2. 1.2 cm echogenicity identified in the right kidney probably an angiomyolipoma. 3. Hepatic steatosis. Electronically signed by: Coy Hinton MD (12/17/2018 2:39 AM) [facility] DICTATED and SIGNED BY: COY HINTON MD DATE: 12/17/18 0239 (PERRY MISTRY MD) Course & Med Decision Making Course & Med Decision Making Pertinent Labs and Imaging studies reviewed. (See chart for details) Discussed signs and symptoms of patient will order ultrasound to look at gallbladder. Will also order labs, urine, ekg, and medications. Patient is agreeable. Dr. Mistry assumes care at 0100. (KANA CUEVAS APRN) Course & Med Decision Making Evaluation of patient in ER showed 58-year-old male patient with complaining of upper abdominal pain and nausea and vomiting since yesterday morning. Patient had right upper quadrant guarding and tenderness with white count of 15,000 and normal liver function tests and lipase. Patient had mild hypokalemia. Gallbladder ultrasound did not show acute finding. CT of abdomen and pelvis showed inflammation around gallbladder with concern for acute cholecystitis. Plan to admit patient with diagnosis of acalculous cholecystitis and UTI and hyponatremia. Patient requiring admission for further evaluation and treatment. Discussed with Dr. Jerome who is in agreement with admission. Discussed findings and plan with patient and family, who acknowledge understanding and agreement. (PERRY MISTRY MD) Dragon Disclaimer Dragon Disclaimer This electronic medical record was generated, in whole or in part, using a voice recognition dictation system. (KANA CUEVAS APRN) Departure Departure Impression: Primary Impression: Acute acalculous cholecystitis Additional Impressions: Urinary tract infection Abdominal pain Nausea and vomiting Disposition: ADMITTED INPATIENT (at 0430) Admitting Physician: Kana Jerome (accepted admission at 0440) (PERRY MISTRY MD) Condition: IMPROVED Referrals: Suzan VINCENT MD (PCP) Problem Qualifiers Additional Impressions: Urinary tract infection Urinary tract infection type: site unspecified Hematuria presence: without hematuria Qualified Codes: N39.0 - Urinary tract infection, site not specified Abdominal pain Abdominal location: upper abdomen, unspecified Qualified Codes: R10.10 - Upper abdominal pain, unspecified Nausea and vomiting Vomiting type: unspecified Vomiting Intractability: unspecified Qualified Codes: R11.2 - Nausea with vomiting, unspecified KANA CUEVAS APRN December 17, 2018 00:57 PERRY MISTRY MD December 17, 2018 04:38
[2018-12-17] MEDS ORDERED: ONDANSETRON PF 4 MG/2 ML VIAL. IV ONE (01:30)
[2018-12-17] MEDS ORDERED: fentaNYL PF VIAL 100 MCG/2 ML VIAL IV ONE ×2 (01:30→05:30)
[2018-12-17 01:42] LABS: BASO # 0.1 x10^3/uL (0.0-0.2); BASO % 0 % (0-3); EOS # 0.1 x10^3/uL (0.0-0.7); EOS % 1 % (0-3); HEMATOCRIT 45.9 % (36.0-47.0); HEMOGLOBIN 15.3 g/dL (12.0-15.5); LYMPH % 7 % (24-48); MEAN CORPUSCULAR HEMOGLOBIN 27 pg (25-35); MEAN CORPUSCULAR HGB CONC 33 g/dL (31-37); MEAN CORPUSCULAR VOLUME 81 fL (79-100); MONO # 0.9 x10^3/uL (0.0-1.1); MONO % 6 % (0-9); NEUT # 13.3 x10^3uL (1.8-7.7); NEUT % 86 % (31-73); PLATELET COUNT 257 x10^3/uL (140-400); RED BLOOD COUNT 5.68 x10^6/uL (3.50-5.40); RED CELL DISTRIBUTION WIDTH 15.7 % (11.5-14.5); WHITE BLOOD COUNT 15.4 x10^3/uL (4.0-11.0)
[2018-12-17 02:29] LABS: BILIRUBIN,URINE NEGATIVE (NEG); CLARITY,URINE CLOUDY; COLOR,URINE YELLOW; NITRITE,URINE NEGATIVE (NEG); PH,URINE 6.5; PROTEIN,URINE NEGATIVE (NEG-TRACE)
[2018-12-17 02:40] LABS: CALCIUM 9.4 mg/dL (8.5-10.1); CREATININE 1.3 mg/dL (0.6-1.0); GFR 42.2; POTASSIUM 3.2 mmol/L (3.5-5.1)
[2018-12-17 02:41] LABS: WBC,URINE >40 /HPF (0-4)
[2018-12-17 02:42] LABS: BACTERIA,URINE MOD /HPF (0-FEW); SQUAMOUS EPITHELIAL CELL,UR MOD /LPF
--- NOTE | 2018-12-17 02:42 | RAD ---
Examination: Ultrasound abdomen HISTORY: History of cholecystitis. COMPARISON: None available. FINDINGS: The pancreas is poorly visualized. The liver measures 17.4 cm. There is increased echogenicity noted in the liver likely hepatic steatosis. The right kidney measures 11.4 cm in length. The left kidney measures 11.9 cm in length. In the right kidney, there is a 1.2 cm echogenicity probably angiomyolipoma. The spleen appears unremarkable. No evidence of gallstones identified. The gallbladder wall thickness measures 2.5 mm. The common bile duct measures 4.6 mm in transverse dimension. IMPRESSION: 1. No evidence of gallstones. 2. 1.2 cm echogenicity identified in the right kidney probably an angiomyolipoma. 3. Hepatic steatosis. Electronically signed by: Coy Hinton MD (12/17/2018 2:39 AM) [facility]
[2018-12-17 02:46] LABS: ALBUMIN 3.7 g/dL (3.4-5.0); ALBUMIN/GLOBULIN RATIO 0.9 (1.0-1.7); TOTAL PROTEIN 7.8 g/dL (6.4-8.2)
[2018-12-17 02:50] LABS: % BANDS 4 % (0-9); % EOS 1 % (0-5); % LYMPHS 6 % (24-48); % MONOS 3 % (0-10); % SEGS 86 % (35-66); PLT ESTIMATE ADEQUATE (ADEQUATE)
[2018-12-17] MEDS ORDERED: HYDROmorphone 2 MG/ML VIAL IV ONE (03:00)
[2018-12-17] MEDS ORDERED: cefTRIAXone IV Push 1 GM VIAL. IVP ONE (03:30)
[2018-12-17] MEDS ORDERED: KETOROLAC 30 MG/ML VIAL. IV ONE (04:00)
[2018-12-17] MEDS ORDERED: IV NORMAL SALINE 1000ML BAG 1,000 ML IV ONE (04:00)
--- NOTE | 2018-12-17 04:14 | RAD ---
Examination: CT of the abdomen pelvis without contrast HISTORY: History of abdominal pain, leukocytosis. COMPARISON: 08/21/2016 TECHNIQUE: Axial CT images of the abdomen pelvis were performed without contrast. Coronal and sagittal reformats performed Exposure: One or more of the following individualized dose reduction techniques were utilized for this examination: 1. Automated exposure control 2. Adjustment of the mA and/or kV according to patient size 3. Use of iterative reconstruction technique FINDINGS: Mild bibasilar lung airspace opacities. No evidence of free air identified in the abdomen. The evaluation of the solid organs is limited due to lack of IV contrast. The evaluation of bowel is limited due to lack of oral contrast. The visualized liver grossly appears unremarkable. The gallbladder is mildly distended. There is mild fat stranding identified about the gallbladder and extending along the common bile duct and the duodenum extending up to the head of the pancreas. The visualized spleen, adrenals grossly appears unremarkable The stomach is mildly distended The small bowel is nondilated. Appendix is normal. Feces and gas noted in the colon Multiple colonic diverticulosis identified. Urinary bladder is mildly distended. There is a cystic structure identified in the left adnexa measuring 5.9 cm. There is a calcified fibroid identified in the uterus measuring 2 cm No evidence of lytic bony destructive lesion. IMPRESSION: 1. Mild inflammatory fat stranding identified about the gallbladder and extending along the common bile duct and the duodenum and extending to the head of the pancreas. Differential includes cholecystitis, cholangitis, duodenitis or groove pancreatitis. Correlate with lab values. 2. Multiple colonic diverticulosis. 3. 5.9 cm cyst or cystic lesion identified in the left ovary Electronically signed by: Coy Hinton MD (12/17/2018 4:12 AM) [facility]
--- NOTE | 2018-12-17 06:23 | NUR ---
The patient, SHERRON LIMA, 58 y/o, F admitted by WANDA WOLF MD, was given written information regarding hospital policies, unit procedures and contact persons. Pt. arrived on unit at 0545 by bed and 2L oxygen via [place]. Pt. able to walk to bed without help. Pt. does not complain of pain. Call light within reach. Bed low. Will continue to monitor.
--- NOTE | 2018-12-17 06:34 | NUR ---
Pt. states she was supposed to get tetanus shot today in [place]. Pt. works for [employer]. Addendum: 12/17/18 at 0643 by ROSSANA AREVALO RN Amended: Links added.
[2018-12-17 06:48] VITALS: BP 124/69
[2018-12-17] MEDS ORDERED: IV NORMAL SALINE 1000ML BAG 1,000 ML IV SCH (07:09)
[2018-12-17] MEDS ORDERED: HYDROmorphone 2 MG TABLET PO PRN (07:15)
--- NOTE | 2018-12-17 07:22 | EKG ---
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
[2018-12-17] MEDS: IV NORMAL SALINE 1000ML BAG 1,000 ML IV SCH ×3 (07:33→21:41)
--- NOTE | 2018-12-17 08:09 | RAD ---
Chest, 2 views, 12/17/2018: HISTORY: Chest pain The heart size and pulmonary vascularity are normal. No pulmonary infiltrate is seen. There is no evidence of pleural fluid. IMPRESSION: No acute cardiopulmonary abnormality is detected. Electronically signed by: Jak Balbuena MD (12/17/2018 8:06 AM) [facility]
--- NOTE | 2018-12-17 08:29 | PDOC2 ---
CRISTOPHER BOWERS [employer] 12/17/18 0829: CONSULT Date of Consult Date of Consult DATE: 12/17/18 TIME: 08:22 Reason for Consult Reason for Consult: abdominal pain Referring Physician Referring Physician: ER Identification/Chief Complaint Chief Complaint abdominal pain Source Source: Chart review, Patient History of Present Illness Reason for Visit: Acute onset of upper abdominal pain, band like across abdomen, does radiate to back. Majority of pain is epigastric, LUQ. Reports started after eating, emesis x 1. She denies anything similar in past. Medication has helped ease pain. Some constipation issues, no diarrhea Past Medical History Cardiovascular: HTN, Hyperlipidemia GI: GERD Endocrine: Hypothyroidism Past Surgical History Past Surgical History: Other (gastric band and removal for erosion ) Family History Family History: Other (noncontributory to current illness ) Social History No ALCOHOL: none Drugs: None Lives: Alone Current Problem List Problem List Problems Medical Problems: (1) Abdominal pain Status: Acute (2) Acute acalculous cholecystitis Status: Acute (3) Nausea and vomiting Status: Acute (4) Urinary tract infection Status: Acute Current Medications Current Medications Current Medications Multi-Ingredient Mouthwash/Gargle (Gi Cocktail) 20 ml PRN QID PRN PO CHEST PAIN Last administered on 12/17/18at 00:52; Start 12/17/18 at 00:45 Ondansetron HCl (Zofran) 4 mg 1X ONCE IV Last administered on 12/17/18at 01:34; Start 12/17/18 at 01:30; Stop 12/17/18 at 01:31; Status DC Fentanyl Citrate (Fentanyl 2ml Vial) 50 mcg 1X ONCE IV Last administered on 12/17/18at 01:35; Start 12/17/18 at 01:30; Stop 12/17/18 at 01:31; Status DC Hydromorphone HCl (Dilaudid) 1 mg 1X ONCE IV Last administered on 12/17/18at 02:35; Start 12/17/18 at 03:00; Stop 12/17/18 at 03:01; Status DC Sodium Chloride 1,000 ml @ 1,000 mls/hr 1X ONCE IV Last administered on 12/17/18at 03:48; Start 12/17/18 at 04:00; Stop 12/17/18 at 04:59; Status DC Ceftriaxone Sodium (Rocephin) 1 gm 1X ONCE IVP ; Start 12/17/18 at 03:30; Stop 12/17/18 at 03:33; Status DC Levofloxacin/ Dextrose 100 ml @ 100 mls/hr 1X ONCE IV Last administered on 12/17/18at 04:02; Start 12/17/18 at 04:00; Stop 12/17/18 at 04:59; Status DC Ketorolac Tromethamine (Toradol 30mg Vial) 30 mg 1X ONCE IV Last administered on 12/17/18at 03:47; Start 12/17/18 at 04:00; Stop 12/17/18 at 04:01; Status DC Sodium Chloride 1,000 ml @ 150 mls/hr Q6H40M IV Last administered on 12/17/18at 07:33; Start 12/17/18 at 05:00; Stop 12/18/18 at 04:59 Fentanyl Citrate (Fentanyl 2ml Vial) 50 mcg 1X ONCE IV Last administered on 12/17/18at 07:32; Start 12/17/18 at 05:30; Stop 12/17/18 at 05:31; Status DC Sodium Chloride 1,000 ml @ 100 mls/hr Q10H IV ; Start 12/17/18 at 07:09; Stop 12/17/18 at 17:08 Hydromorphone HCl (Dilaudid) 2 mg PRN Q4HRS PRN PO MILD PAIN, MODERATE PAIN; Start 12/17/18 at 07:15 Active Scripts Active [place] 5-325 Tablet (Acetaminophen/Hydrocodone Bitart) 1 Each Tablet 1 Tab PO Q8HRS Cyclobenzaprine Hcl 10 Mg Tablet 1 Tab PO TID Diclofenac Potassium 50 Mg Tablet 1 Tab PO BID Ondansetron Odt (Ondansetron) 4 Mg Tab.rapdis 1 Tab PO PRN Q6-8HRS Reported Pravastatin Sodium 40 Mg Tablet 40 Mg PO DAILY Phentermine Hcl 37.5 Mg Tablet 37.5 Mg PO DAILY Dexilant (Dexlansoprazole) 60 Mg mp 60 Mg PO DAILY Levothyroxine Sodium 100 Mcg Tablet 100 Mcg PO DAILY Meclizine Hcl 25 Mg Tablet 25 Mg PO PRN PRN Xanax (Alprazolam) 0.25 Mg Tablet 1 Tab PO PRN PRN Aldactone (Spironolactone) 100 Mg Tablet 100 Mg PO DAILY Allergies Allergies: Coded Allergies: Iodinated Contrast- Oral and IV Dye (Verified Allergy, Severe, Anaphylaxis, 10/24/14) cefazolin (Verified Allergy, Intermediate, Hives, 12/09/17) sulfamethoxazole (Verified Allergy, Intermediate, Hives, 12/09/17) trimethoprim (Verified Allergy, Intermediate, Hives, 12/09/17) ciprofloxacin (Verified Adverse Reaction, Severe, tendonitis, 12/09/17) codeine (Verified Adverse Reaction, Intermediate, Nausea, 12/08/17) morphine (Verified Adverse Reaction, Intermediate, Nausea and Vomiting, 12/08/17) ROS General: YES: Chills; No: Other (fevers ) PSYCHOLOGICAL ROS: No: Anxiety, Depression Eyes: No Blurry vision, No Double vision HEENT: No: Heacaches, Sore Throat Hematological and Lymphatic: No: Bleeding Problems, Blood Clots Respiratory: No: Cough, Shortness of breath Cardiovascular: No Chest Pain, No Palpitations Gastrointestinal: Yes Other (see hpi) Genitourinary: No Dysuria, No Hematuria Musculoskeletal: No Joint Pain, No Muscle Pain Neurological: No Confusion, No Impaired Coord/balance Skin: No Pruritus, No Rash Physical Exam General: Alert, Oriented X3, Cooperative, No acute distress HEENT: PERRLA, Mucous membr. moist/pink Lungs: Clear to auscultation, Normal air movement Heart: Regular rate, Normal S1, Normal S2 Abdomen: Soft, Other (ND moderate pain to epigastric, LUQ) Extremities: No clubbing, No cyanosis Skin: No rashes, No breakdown Neuro: Normal gait, Normal speech Psych/Mental Status: Mental status NL, Mood NL MUSCULOSKELETAL: No deformity, No swelling Vitals VITALS Vital Signs Date Time Temp Pulse Resp B/P (MAP) Pulse Ox O2 Delivery O2 Flow Rate FiO2 12/17/18 07:32 18 Room Air 12/17/18 06:48 97.7 87 124/69 (87) 96 97.7 12/17/18 05:45 2.0 Labs Labs Laboratory Tests Test 12/17/18 01:25 12/17/18 02:15 12/17/18 02:17 White Blood Count 15.4 x10^3/uL (4.0-11.0) Red Blood Count 5.68 x10^6/uL (3.50-5.40) Hemoglobin 15.3 g/dL (12.0-15.5) Hematocrit 45.9 % (36.0-47.0) Mean Corpuscular Volume 81 fL (79-100) Mean Corpuscular Hemoglobin 27 pg (25-35) Mean Corpuscular Hemoglobin Concent 33 g/dL (31-37) Red Cell Distribution Width 15.7 % (11.5-14.5) Platelet Count 257 x10^3/uL (140-400) Neutrophils (%) (Auto) 86 % (31-73) Lymphocytes (%) (Auto) 7 % (24-48) Monocytes (%) (Auto) 6 % (0-9) Eosinophils (%) (Auto) 1 % (0-3) Basophils (%) (Auto) 0 % (0-3) Neutrophils # (Auto) 13.3 x10^3uL (1.8-7.7) Lymphocytes # (Auto) 1.0 x10^3/uL (1.0-4.8) Monocytes # (Auto) 0.9 x10^3/uL (0.0-1.1) Eosinophils # (Auto) 0.1 x10^3/uL (0.0-0.7) Basophils # (Auto) 0.1 x10^3/uL (0.0-0.2) Segmented Neutrophils % 86 % (35-66) Band Neutrophils % 4 % (0-9) Lymphocytes % 6 % (24-48) Monocytes % 3 % (0-10) Eosinophils % 1 % (0-5) Platelet Estimate Adequate (ADEQUATE) Urine Collection Type Void Urine Color Yellow Urine Clarity Cloudy Urine pH 6.5 Urine Specific [place] >=1.030 Urine Protein Negative mg/dL (NEG-TRACE) Urine Glucose (UA) Negative mg/dL (NEG) Urine Ketones (Stick) 15 mg/dL (NEG) Urine Blood Negative (NEG) Urine Nitrite Negative (NEG) Urine Bilirubin Negative (NEG) Urine Urobilinogen Dipstick 1.0 mg/dL (0.2 mg/dL) Urine Leukocyte Esterase Moderate (NEG) Urine RBC 6-10 /HPF (0-2) Urine WBC >40 /HPF (0-4) Urine Squamous Epithelial Cells Mod /LPF Urine Bacteria Mod /HPF (0-FEW) Urine Mucus Marked /LPF Sodium Level 137 mmol/L (136-145) Potassium Level 3.2 mmol/L (3.5-5.1) Chloride Level 97 mmol/L (98-107) Carbon Dioxide Level 31 mmol/L (21-32) Anion Gap 9 (6-14) Blood Urea Nitrogen 15 mg/dL (7-20) Creatinine 1.3 mg/dL (0.6-1.0) Estimated GFR (Cockcroft-Gault) 42.2 BUN/Creatinine Ratio 12 (6-20) Glucose Level 166 mg/dL (70-99) Calcium Level 9.4 mg/dL (8.5-10.1) Total Bilirubin 1.0 mg/dL (0.2-1.0) Aspartate Amino Transf (AST/SGOT) 35 U/L (15-37) Alanine Aminotransferase (ALT/SGPT) 35 U/L (14-59) Alkaline Phosphatase 57 U/L (46-116) Troponin I Quantitative < 0.017 ng/mL (0.000-0.055) Total Protein 7.8 g/dL (6.4-8.2) Albumin 3.7 g/dL (3.4-5.0) Albumin/Globulin Ratio 0.9 (1.0-1.7) Lipase 166 U/L (73-393) Laboratory Tests Test 12/17/18 01:25 12/17/18 02:15 12/17/18 02:17 White Blood Count 15.4 x10^3/uL (4.0-11.0) Red Blood Count 5.68 x10^6/uL (3.50-5.40) Hemoglobin 15.3 g/dL (12.0-15.5) Hematocrit 45.9 % (36.0-47.0) Mean Corpuscular Volume 81 fL (79-100) Mean Corpuscular Hemoglobin 27 pg (25-35) Mean Corpuscular Hemoglobin Concent 33 g/dL (31-37) Red Cell Distribution Width 15.7 % (11.5-14.5) Platelet Count 257 x10^3/uL (140-400) Neutrophils (%) (Auto) 86 % (31-73) Lymphocytes (%) (Auto) 7 % (24-48) Monocytes (%) (Auto) 6 % (0-9) Eosinophils (%) (Auto) 1 % (0-3) Basophils (%) (Auto) 0 % (0-3) Neutrophils # (Auto) 13.3 x10^3uL (1.8-7.7) Lymphocytes # (Auto) 1.0 x10^3/uL (1.0-4.8) Monocytes # (Auto) 0.9 x10^3/uL (0.0-1.1) Eosinophils # (Auto) 0.1 x10^3/uL (0.0-0.7) Basophils # (Auto) 0.1 x10^3/uL (0.0-0.2) Segmented Neutrophils % 86 % (35-66) Band Neutrophils % 4 % (0-9) Lymphocytes % 6 % (24-48) Monocytes % 3 % (0-10) Eosinophils % 1 % (0-5) Platelet Estimate Adequate (ADEQUATE) Urine Collection Type Void Urine Color Yellow Urine Clarity Cloudy Urine pH 6.5 Urine Specific [place] >=1.030 Urine Protein Negative mg/dL (NEG-TRACE) Urine Glucose (UA) Negative mg/dL (NEG) Urine Ketones (Stick) 15 mg/dL (NEG) Urine Blood Negative (NEG) Urine Nitrite Negative (NEG) Urine Bilirubin Negative (NEG) Urine Urobilinogen Dipstick 1.0 mg/dL (0.2 mg/dL) Urine Leukocyte Esterase Moderate (NEG) Urine RBC 6-10 /HPF (0-2) Urine WBC >40 /HPF (0-4) Urine Squamous Epithelial Cells Mod /LPF Urine Bacteria Mod /HPF (0-FEW) Urine Mucus Marked /LPF Sodium Level 137 mmol/L (136-145) Potassium Level 3.2 mmol/L (3.5-5.1) Chloride Level 97 mmol/L (98-107) Carbon Dioxide Level 31 mmol/L (21-32) Anion Gap 9 (6-14) Blood Urea Nitrogen 15 mg/dL (7-20) Creatinine 1.3 mg/dL (0.6-1.0) Estimated GFR (Cockcroft-Gault) 42.2 BUN/Creatinine Ratio 12 (6-20) Glucose Level 166 mg/dL (70-99) Calcium Level 9.4 mg/dL (8.5-10.1) Total Bilirubin 1.0 mg/dL (0.2-1.0) Aspartate Amino Transf (AST/SGOT) 35 U/L (15-37) Alanine Aminotransferase (ALT/SGPT) 35 U/L (14-59) Alkaline Phosphatase 57 U/L (46-116) Troponin I Quantitative < 0.017 ng/mL (0.000-0.055) Total Protein 7.8 g/dL (6.4-8.2) Albumin 3.7 g/dL (3.4-5.0) Albumin/Globulin Ratio 0.9 (1.0-1.7) Lipase 166 U/L (73-393) Assessment/Plan Assessment/Plan abdominal pain noted CT findings--inflammation around GB, duodenal, pancreas US without stones, lipase normal will check HIDA to further assess GB JADE MANCIA MD 12/17/18 0934: CONSULT Assessment/Plan Assessment/Plan Patient seen and examined by me complains of epigastric to left upper quadrant abdominal pain and emesis. Abdomen is soft nondistended she is mildly tender to palpation in the epigastrium area CT scan reviewed showing inflammatory changes around gallbladder duodenum and pancreas. Ultrasound shows no gallstones possible acalculous cholecystitis possibly pancreatitis versus duodenal ulcer we'll obtain HIDA scan for further evaluation agree with Cdaen assessment and plan CRISTOPHER BOWERS APRN December 17, 2018 08:29 JADE MANCIA MD December 17, 2018 09:34
[2018-12-17 12:15] VITALS: BP 122/68
--- NOTE | 2018-12-17 12:33 | NUR ---
SW following for discharge planning. Discussed with RN, pt from home, works for [employer]. Possible surgery. RN advised no SW needs. SW will continue to follow.
[2018-12-17] MEDS ORDERED: HYDROmorphone 2 MG/ML VIAL IV PRN (12:45)
--- NOTE | 2018-12-17 12:52 | HP ---
ADMIT DATE: 12/17/2018 CHIEF COMPLAINT: Abdominal pain. HISTORY OF PRESENT ILLNESS AND HOSPITAL COURSE: This patient is a 58-year-old female who came to the hospital with several hours of increasing abdominal pain. She describes the pain is 10/10 in the epigastrium. The patient came to the ER and had a CAT scan showing inflammation in the area of the gallbladder, but no gallstones. The patient was admitted for surgical evaluation and possible acalculous cholecystitis. PAST MEDICAL HISTORY: The patient's past medical history is significant for: 1. Failed lap band surgery with history of erosions. 2. Hypothyroidism. 3. Hypertension. 4. Meniere's disease. 5. Esophageal reflux disease. 6. Iron deficiency. 7. Hyperlipidemia. 8. Anxiety with panic attacks. 9. Diverticulosis. 10. History of migraines. 11. Morbid obesity. 12. Chronic back pain. PAST SURGICAL HISTORY: The patient's past surgical history is significant for gastric banding and removal of gastric banding, breast biopsy x 4, tubal ligation, knee surgery, foot surgery, skin lipoma excision and uterine ablation. FAMILY HISTORY: Mother is with history of lung cancer and COPD. Father is with history of breast cancer and coronary artery disease. Sister is alive, survivor of cervical cancer. SOCIAL HISTORY: The patient has never smoked. She does not use alcohol. 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 REVIEW OF SYSTEMS: The patient denies any recent fevers, cough or congestion. She has had no significant diarrhea or constipation. She has had some nausea and vomiting associated with her current abdominal pain. The patient has had no shortness of breath. PHYSICAL EXAMINATION: GENERAL: This is a well-nourished, well-developed female, in no apparent distress on my exam. She is alert and oriented x 3. HEENT: Benign. NECK: Supple. CARDIAC EXAMINATION: Regular rate and rhythm. LUNGS: Clear. ABDOMEN: Soft with tenderness in the epigastrium and positive Castillo sign. She has positive bowel sounds. EXTREMITIES: With 2+ pulses, without significant edema. NEUROLOGICAL EXAMINATION: Showed no unilateral findings. ASSESSMENT: Acalculous cholecystitis. PLAN: Plan is to proceed with surgical consultation and evaluation. Consider GI evaluation and we will prophylax and treat for possible peptic ulcer disease with Protonix IV and continue n.p.o. status until surgery plans can be determined. WANDA WOLF MD DR: Skyler JOB#: [id number] / [id number]
--- NOTE | 2018-12-17 13:00 | NUR ---
Around 1220 Dr Jerome, BRANDEE, and another RN stated that the patients pain was 10/10 and needed her pain medication now. Only PO meds ordered. Changed to IV and given. Will continue to monitor.
--- NOTE | 2018-12-17 14:11 | NUR ---
Around 1400 transport came to pick up driver the patient to do her scan again and she was fast asleep but arousable when spoken to and sweating. Patient able to answer questions when asked and vital signs are stable. Transport took her down per bed around 1408 with her O2 running at 2L. Will follow up.
--- NOTE | 2018-12-17 14:51 | RAD ---
HEPATOBILIARY SCAN (NUCLEAR MEDICINE STUDY) CLINICAL INDICATIONS: Abdominal pain and nausea and vomiting for one day. TECHNIQUE: After IV infusion of 5.5 mCi of technetium 99m Choletec, anterior planar images of the upper abdomen were performed in sequential fashion. COMPARISON: Abdomen ultrasound study December 17, 2018. Abdomen CT study dated December 17, 2018. FINDINGS: Homogeneous uptake is seen throughout the liver. Radiotracer activity is not identified within the gallbladder or common bile duct or duodenum by 4 hours. IMPRESSION: No radiotracer activity is seen within the gallbladder or common bile duct duodenum after 4 hours. This may be seen with a high-grade common bile duct obstruction or ascending cholangitis. Electronically signed by: Eligio Powers MD (12/17/2018 2:48 PM) [id number]
[2018-12-17 15:00] VITALS: BP 115/68
--- NOTE | 2018-12-17 15:07 | NUR ---
Called Ana Lilia Arellano about patients scan results. She stated patient is able to have clear liquids for now but to be NPO at midnight. Order to start IV zosyn Q6hr. Plan is for patient to have surgery in the morning.
--- NOTE | 2018-12-17 15:25 | NUR ---
Spoke with pharmacy and Ana Lilia Arellano about patients antibiotics. Order to stop the zosyn and start levaquin 500mg IV Q24hr since she got it this morning without a reaction.
[2018-12-17] MEDS ORDERED: PIPERACILLIN/TAZOBACTAM 3.375 GM in IV NORMAL SALINE 50ML 50 ML IV SCH (18:00)
[2018-12-17 19:00] VITALS: BP 132/83
[2018-12-17] MEDS ORDERED: ONDANSETRON PF 4 MG/2 ML VIAL. IV PRN (21:15)
[2018-12-17 23:00] VITALS: BP 138/83
[2018-12-18] MEDS: POTASSIUM CHLORIDE 10MEQ 100 ML IV SCH ×4 (00:03→03:27)
[2018-12-18] MEDS: IV NORMAL SALINE 1000ML BAG 1,000 ML IV SCH (00:04)
[2018-12-18] MEDS: HYDROmorphone 2 MG/ML VIAL IV PRN (01:17)
[2018-12-18 02:56] VITALS: BP 121/72
[2018-12-18 04:26] LABS: BASO % 0 % (0-3); EOS % 0 % (0-3); HEMATOCRIT 47.7 % (36.0-47.0); HEMOGLOBIN 15.1 g/dL (12.0-15.5); LYMPH # 0.7 x10^3/uL (1.0-4.8); LYMPH % 2 % (24-48); MEAN CORPUSCULAR HEMOGLOBIN 27 pg (25-35); MEAN CORPUSCULAR HGB CONC 32 g/dL (31-37); MEAN CORPUSCULAR VOLUME 84 fL (79-100); MONO # 1.5 x10^3/uL (0.0-1.1); MONO % 5 % (0-9); NEUT # 29.7 x10^3uL (1.8-7.7); NEUT % 93 % (31-73); PLATELET COUNT 225 x10^3/uL (140-400); RED BLOOD COUNT 5.66 x10^6/uL (3.50-5.40); RED CELL DISTRIBUTION WIDTH 15.6 % (11.5-14.5); WHITE BLOOD COUNT 31.9 x10^3/uL (4.0-11.0)
[2018-12-18 04:40] LABS: CALCIUM 8.9 mg/dL (8.5-10.1); CREATININE 1.1 mg/dL (0.6-1.0); GFR 51.2; POTASSIUM 3.6 mmol/L (3.5-5.1)
[2018-12-18 05:20] LABS: % BANDS 15 % (0-9); % EOS 1 % (0-5); % LYMPHS 3 % (24-48); % MONOS 5 % (0-10); % SEGS 76 % (35-66); PLT ESTIMATE ADEQUATE (ADEQUATE); TOXIC VACUOLATION SLIGHT
[2018-12-18 07:00] VITALS: BP 132/79
[2018-12-18] MEDS: PANTOPRAZOLE IV PUSH 40 MG VIAL. IVP SCH (07:44)
[2018-12-18] MEDS: IV RINGERS,LACTATED 1000ML 1,000 ML IV SCH ×2 (09:43→13:13)
[2018-12-18] MEDS ORDERED: PROCHLORPERAZINE 10 MG/2 ML VIAL. IV PRN (09:45)
[2018-12-18] MEDS ORDERED: MORPHINE SULFATE 2 MG/ML VIAL. IV PRN (09:45)
[2018-12-18] MEDS ORDERED: fentaNYL PF VIAL 100 MCG/2 ML VIAL IV PRN ×2 (09:45)
[2018-12-18] MEDS ORDERED: HYDROmorphone 2 MG/ML VIAL IV PRN (09:45)
[2018-12-18] MEDS ORDERED: ONDANSETRON PF 4 MG/2 ML VIAL. IV PRN (09:45)
[2018-12-18] MEDS ORDERED: LIDOCAINE 1% PF 2 ML VIAL. ID PRN (09:45)
[2018-12-18] MEDS ORDERED: LIDOCAINE 2% PF 5 ML VIAL. ONE (11:28)
[2018-12-18] MEDS ORDERED: PROPOFOL 20 ML IV ONE (11:28)
[2018-12-18] MEDS ORDERED: ONDANSETRON PF 4 MG/2 ML VIAL. ONE (11:29)
[2018-12-18] MEDS ORDERED: DEXAMETHASONE SOD PHOS 4 MG/ML VIAL ONE (11:29)
[2018-12-18] MEDS ORDERED: fentaNYL PF VIAL 100 MCG/2 ML VIAL ONE (11:30)
[2018-12-18] MEDS ORDERED: ROCURONIUM 50 MG/5 ML VIAL. ONE ×2 (11:30→14:43)
[2018-12-18] MEDS ORDERED: NEOSTIGMINE METHYLSULFATE 5 MG/5 ML SYRINGE. ONE (11:31)
[2018-12-18] MEDS ORDERED: GLYCOPYRROLATE 1 MG/5 ML VIAL. ONE (11:31)
[2018-12-18] MEDS ORDERED: BUPIVAC MPF-EPI 0.5%-1:200000 30 ML VIAL. ONE (11:46)
[2018-12-18] MEDS ORDERED: SURGICEL HEMOSTAT 4X8 EACH. ONE (11:46)
[2018-12-18] MEDS ORDERED: IOHEXOL 300 MG/ML 50 ML VIAL. ONE (11:46)
--- NOTE | 2018-12-18 12:27 | NUR ---
SW following for discharge planning. Discussed with RN, pt having surgery today. SW will continue to follow for any discharge planning needs.
--- NOTE | 2018-12-18 13:00 | PDOC ---
PROGRESS NOTES Subjective Subjective Patient continues to have abdominal pain. Patient white count increased over evening. gallbladder scan shows ascending cholangitis. Surgery planned this afternoon. Antibiotics started. Objective Objective Vital Signs Date Time Temp Pulse Resp B/P (MAP) Pulse Ox O2 Delivery O2 Flow Rate FiO2 12/18/18 08:00 Nasal Cannula 2.0 12/18/18 07:00 98.6 98 18 132/79 (96) 93 98.6 Intake and Output 12/18/18 07:00 Intake Total 150 ml Balance 150 ml Intake Oral 150 ml Physical Exam Abdomen: Normal bowel sounds, Other (tender epigastrium.) Heart: Regular rate Extremities: No edema General: Alert Lungs: Clear to auscultation Assessment Assessment Problems Medical Problems: (1) Abdominal pain Status: Acute (2) Acute acalculous cholecystitis Status: Acute (3) Nausea and vomiting Status: Acute (4) Urinary tract infection Status: Acute Cholecystitis Plan Plan of Care Proceed with definitive surgery and postop care. Continue IV antibiotics Comment Review of Relevant I have reviewed the following items hamilton (where applicable) has been applied. Labs Laboratory Tests Test 12/17/18 01:25 12/17/18 02:15 12/17/18 02:17 12/17/18 13:50 White Blood Count 15.4 x10^3/uL (4.0-11.0) Red Blood Count 5.68 x10^6/uL (3.50-5.40) Hemoglobin 15.3 g/dL (12.0-15.5) Hematocrit 45.9 % (36.0-47.0) Mean Corpuscular Volume 81 fL (79-100) Mean Corpuscular Hemoglobin 27 pg (25-35) Mean Corpuscular Hemoglobin Concent 33 g/dL (31-37) Red Cell Distribution Width 15.7 % (11.5-14.5) Platelet Count 257 x10^3/uL (140-400) Neutrophils (%) (Auto) 86 % (31-73) Lymphocytes (%) (Auto) 7 % (24-48) Monocytes (%) (Auto) 6 % (0-9) Eosinophils (%) (Auto) 1 % (0-3) Basophils (%) (Auto) 0 % (0-3) Neutrophils # (Auto) 13.3 x10^3uL (1.8-7.7) Lymphocytes # (Auto) 1.0 x10^3/uL (1.0-4.8) Monocytes # (Auto) 0.9 x10^3/uL (0.0-1.1) Eosinophils # (Auto) 0.1 x10^3/uL (0.0-0.7) Basophils # (Auto) 0.1 x10^3/uL (0.0-0.2) Segmented Neutrophils % 86 % (35-66) Band Neutrophils % 4 % (0-9) Lymphocytes % 6 % (24-48) Monocytes % 3 % (0-10) Eosinophils % 1 % (0-5) Platelet Estimate Adequate (ADEQUATE) Urine Collection Type Void Urine Color Yellow Urine Clarity Cloudy Urine pH 6.5 Urine Specific [place] >=1.030 Urine Protein Negative mg/dL (NEG-TRACE) Urine Glucose (UA) Negative mg/dL (NEG) Urine Ketones (Stick) 15 mg/dL (NEG) Urine Blood Negative (NEG) Urine Nitrite Negative (NEG) Urine Bilirubin Negative (NEG) Urine Urobilinogen Dipstick 1.0 mg/dL (0.2 mg/dL) Urine Leukocyte Esterase Moderate (NEG) Urine RBC 6-10 /HPF (0-2) Urine WBC >40 /HPF (0-4) Urine Squamous Epithelial Cells Mod /LPF Urine Bacteria Mod /HPF (0-FEW) Urine Mucus Marked /LPF Sodium Level 137 mmol/L (136-145) Potassium Level 3.2 mmol/L (3.5-5.1) Chloride Level 97 mmol/L (98-107) Carbon Dioxide Level 31 mmol/L (21-32) Anion Gap 9 (6-14) Blood Urea Nitrogen 15 mg/dL (7-20) Creatinine 1.3 mg/dL (0.6-1.0) Estimated GFR (Cockcroft-Gault) 42.2 BUN/Creatinine Ratio 12 (6-20) Glucose Level 166 mg/dL (70-99) Calcium Level 9.4 mg/dL (8.5-10.1) Total Bilirubin 1.0 mg/dL (0.2-1.0) Aspartate Amino Transf (AST/SGOT) 35 U/L (15-37) Alanine Aminotransferase (ALT/SGPT) 35 U/L (14-59) Alkaline Phosphatase 57 U/L (46-116) Troponin I Quantitative < 0.017 ng/mL (0.000-0.055) Total Protein 7.8 g/dL (6.4-8.2) Albumin 3.7 g/dL (3.4-5.0) Albumin/Globulin Ratio 0.9 (1.0-1.7) Lipase 166 U/L (73-393) Glucose (Fingerstick) 173 mg/dL (70-99) Test 12/18/18 04:00 White Blood Count 31.9 x10^3/uL (4.0-11.0) Red Blood Count 5.66 x10^6/uL (3.50-5.40) Hemoglobin 15.1 g/dL (12.0-15.5) Hematocrit 47.7 % (36.0-47.0) Mean Corpuscular Volume 84 fL (79-100) Mean Corpuscular Hemoglobin 27 pg (25-35) Mean Corpuscular Hemoglobin Concent 32 g/dL (31-37) Red Cell Distribution Width 15.6 % (11.5-14.5) Platelet Count 225 x10^3/uL (140-400) Neutrophils (%) (Auto) 93 % (31-73) Lymphocytes (%) (Auto) 2 % (24-48) Monocytes (%) (Auto) 5 % (0-9) Eosinophils (%) (Auto) 0 % (0-3) Basophils (%) (Auto) 0 % (0-3) Neutrophils # (Auto) 29.7 x10^3uL (1.8-7.7) Lymphocytes # (Auto) 0.7 x10^3/uL (1.0-4.8) Monocytes # (Auto) 1.5 x10^3/uL (0.0-1.1) Eosinophils # (Auto) 0.0 x10^3/uL (0.0-0.7) Basophils # (Auto) 0.0 x10^3/uL (0.0-0.2) Segmented Neutrophils % 76 % (35-66) Band Neutrophils % 15 % (0-9) Lymphocytes % 3 % (24-48) Monocytes % 5 % (0-10) Eosinophils % 1 % (0-5) Toxic Vacuolation Slight Platelet Estimate Adequate (ADEQUATE) Sodium Level 141 mmol/L (136-145) Potassium Level 3.6 mmol/L (3.5-5.1) Chloride Level 102 mmol/L (98-107) Carbon Dioxide Level 25 mmol/L (21-32) Anion Gap 14 (6-14) Blood Urea Nitrogen 14 mg/dL (7-20) Creatinine 1.1 mg/dL (0.6-1.0) Estimated GFR (Cockcroft-Gault) 51.2 Glucose Level 115 mg/dL (70-99) Calcium Level 8.9 mg/dL (8.5-10.1) Laboratory Tests Test 12/17/18 13:50 12/18/18 04:00 Glucose (Fingerstick) 173 mg/dL (70-99) White Blood Count 31.9 x10^3/uL (4.0-11.0) Red Blood Count 5.66 x10^6/uL (3.50-5.40) Hemoglobin 15.1 g/dL (12.0-15.5) Hematocrit 47.7 % (36.0-47.0) Mean Corpuscular Volume 84 fL (79-100) Mean Corpuscular Hemoglobin 27 pg (25-35) Mean Corpuscular Hemoglobin Concent 32 g/dL (31-37) Red Cell Distribution Width 15.6 % (11.5-14.5) Platelet Count 225 x10^3/uL (140-400) Neutrophils (%) (Auto) 93 % (31-73) Lymphocytes (%) (Auto) 2 % (24-48) Monocytes (%) (Auto) 5 % (0-9) Eosinophils (%) (Auto) 0 % (0-3) Basophils (%) (Auto) 0 % (0-3) Neutrophils # (Auto) 29.7 x10^3uL (1.8-7.7) Lymphocytes # (Auto) 0.7 x10^3/uL (1.0-4.8) Monocytes # (Auto) 1.5 x10^3/uL (0.0-1.1) Eosinophils # (Auto) 0.0 x10^3/uL (0.0-0.7) Basophils # (Auto) 0.0 x10^3/uL (0.0-0.2) Segmented Neutrophils % 76 % (35-66) Band Neutrophils % 15 % (0-9) Lymphocytes % 3 % (24-48) Monocytes % 5 % (0-10) Eosinophils % 1 % (0-5) Toxic Vacuolation Slight Platelet Estimate Adequate (ADEQUATE) Sodium Level 141 mmol/L (136-145) Potassium Level 3.6 mmol/L (3.5-5.1) Chloride Level 102 mmol/L (98-107) Carbon Dioxide Level 25 mmol/L (21-32) Anion Gap 14 (6-14) Blood Urea Nitrogen 14 mg/dL (7-20) Creatinine 1.1 mg/dL (0.6-1.0) Estimated GFR (Cockcroft-Gault) 51.2 Glucose Level 115 mg/dL (70-99) Calcium Level 8.9 mg/dL (8.5-10.1) Medications Current Medications Multi-Ingredient Mouthwash/Gargle (Gi Cocktail) 20 ml PRN QID PRN PO CHEST PAIN Last administered on 12/17/18at 00:52; Start 12/17/18 at 00:45 Ondansetron HCl (Zofran) 4 mg 1X ONCE IV Last administered on 12/17/18at 01:34; Start 12/17/18 at 01:30; Stop 12/17/18 at 01:31; Status DC Fentanyl Citrate (Fentanyl 2ml Vial) 50 mcg 1X ONCE IV Last administered on 12/17/18at 01:35; Start 12/17/18 at 01:30; Stop 12/17/18 at 01:31; Status DC Hydromorphone HCl (Dilaudid) 1 mg 1X ONCE IV Last administered on 12/17/18at 02:35; Start 12/17/18 at 03:00; Stop 12/17/18 at 03:01; Status DC Sodium Chloride 1,000 ml @ 1,000 mls/hr 1X ONCE IV Last administered on 12/17/18at 03:48; Start 12/17/18 at 04:00; Stop 12/17/18 at 04:59; Status DC Ceftriaxone Sodium (Rocephin) 1 gm 1X ONCE IVP ; Start 12/17/18 at 03:30; Stop 12/17/18 at 03:33; Status DC Levofloxacin/ Dextrose 100 ml @ 100 mls/hr 1X ONCE IV Last administered on 12/17/18at 04:02; Start 12/17/18 at 04:00; Stop 12/17/18 at 04:59; Status DC Ketorolac Tromethamine (Toradol 30mg Vial) 30 mg 1X ONCE IV Last administered on 12/17/18at 03:47; Start 12/17/18 at 04:00; Stop 12/17/18 at 04:01; Status DC Sodium Chloride 1,000 ml @ 150 mls/hr Q6H40M IV Last administered on 12/18/18at 00:04; Start 12/17/18 at 05:00; Stop 12/18/18 at 04:59; Status DC Fentanyl Citrate (Fentanyl 2ml Vial) 50 mcg 1X ONCE IV Last administered on 12/17/18at 07:32; Start 12/17/18 at 05:30; Stop 12/17/18 at 05:31; Status DC Sodium Chloride 1,000 ml @ 100 mls/hr Q10H IV ; Start 12/17/18 at 07:09; Stop 12/17/18 at 17:08; Status DC Hydromorphone HCl (Dilaudid) 2 mg PRN Q4HRS PRN PO MILD PAIN, MODERATE PAIN; Start 12/17/18 at 07:15; Stop 12/17/18 at 12:27; Status DC Pantoprazole Sodium (PROTONIX VIAL for IV PUSH) 40 mg DAILYAC IVP Last administered on 12/18/18at 07:44; Start 12/18/18 at 07:30 Hydromorphone HCl (Dilaudid) 2 mg PRN Q4HRS PRN IV MODERATE PAIN Last administered on 12/18/18at 01:17; Start 12/17/18 at 12:30 Hydromorphone HCl (Dilaudid) 4 mg PRN Q4HRS PRN IV SEVERE PAIN Last administered on 12/17/18at 12:42; Start 12/17/18 at 12:45 Piperacillin Sod/ Tazobactam Sod 3.375 gm/Sodium Chloride 50 ml @ 100 mls/hr Q6HRS IV ; Start 12/17/18 at 18:00; Stop 12/17/18 at 18:00; Status DC Levofloxacin/ Dextrose 100 ml @ 100 mls/hr Q24H IV Last administered on 12/18/18at 03:28; Start 12/18/18 at 04:00 Ondansetron HCl (Zofran) 4 mg PRN Q6HRS PRN IV NAUSEA/VOMITING Last administered on 12/17/18at 21:46; Start 12/17/18 at 21:15 Potassium Chloride/Water 100 ml @ 100 mls/hr Q1H IV Last administered on 12/18/18at 03:27; Start 12/18/18 at 00:00; Stop 12/18/18 at 03:59; Status DC Ondansetron HCl (Zofran) 4 mg PRN Q6HRS PRN IV NAUSEA/VOMITING; Start 12/18/18 at 09:45; Stop 12/18/18 at 20:00 Fentanyl Citrate (Fentanyl 2ml Vial) 25 mcg PRN Q5MIN PRN IV MILD PAIN; Start 12/18/18 at 09:45; Stop 12/18/18 at 20:00 Fentanyl Citrate (Fentanyl 2ml Vial) 50 mcg PRN Q5MIN PRN IV MODERATE TO SEVERE PAIN; Start 12/18/18 at 09:45; Stop 12/18/18 at 20:00 Morphine Sulfate (Morphine Sulfate) 1 mg PRN Q10MIN PRN IV SEVERE PAIN; Start 12/18/18 at 09:45; Stop 12/18/18 at 20:00 Ringer's Solution 1,000 ml @ 30 mls/hr Q24H IV ; Start 12/18/18 at 09:43; Stop 12/18/18 at 21:42 Lidocaine HCl (Xylocaine-Mpf 1% 2ml Vial) 2 ml PRN 1X PRN ID PRIOR TO IV START; Start 12/18/18 at 09:45; Stop 12/18/18 at 20:00 Hydromorphone HCl (Dilaudid) 0.5 mg PRN Q10MIN PRN IV SEV PAIN, Second choice; Start 12/18/18 at 09:45; Stop 12/18/18 at 20:00 Prochlorperazine Edisylate (Compazine) 5 mg PACU PRN PRN IV NAUSEA, MRX1; Start 12/18/18 at 09:45; Stop 12/18/18 at 20:00 Propofol 20 ml @ As Directed STK-MED ONCE IV ; Start 12/18/18 at 11:28; Stop 12/18/18 at 11:29; Status DC Lidocaine HCl (Lidocaine Pf 2% Vial) 5 ml STK-MED ONCE .ROUTE ; Start 12/18/18 at 11:28; Stop 12/18/18 at 11:29; Status DC Ondansetron HCl (Zofran) 4 mg STK-MED ONCE .ROUTE ; Start 12/18/18 at 11:29; Stop 12/18/18 at 11:30; Status DC Dexamethasone Sodium Phosphate (Decadron) 4 mg STK-MED ONCE .ROUTE ; Start 12/18/18 at 11:29; Stop 12/18/18 at 11:30; Status DC Rocuronium [place] (Zemuron) 50 mg STK-MED ONCE .ROUTE ; Start 12/18/18 at 11:30; Stop 12/18/18 at 11:31; Status DC Fentanyl Citrate (Fentanyl 2ml Vial) 100 mcg STK-MED ONCE .ROUTE ; Start 12/18/18 at 11:30; Stop 12/18/18 at 11:31; Status DC Glycopyrrolate (Robinul) 1 mg STK-MED ONCE .ROUTE ; Start 12/18/18 at 11:31; Stop 12/18/18 at 11:32; Status DC Neostigmine Methylsulfate (Neostigmine Methylsulfate) 5 mg STK-MED ONCE .ROUTE ; Start 12/18/18 at 11:31; Stop 12/18/18 at 11:32; Status DC Bupivacaine HCl/ Epinephrine Bitart (Sensorcain-Mpf Epi 0.5%-1:[id number]) 30 ml STK-MED ONCE .ROUTE ; Start 12/18/18 at 11:46; Stop 12/18/18 at 12:47; Status DC Iohexol (Omnipaque 300 Mg/ml) 50 ml STK-MED ONCE .ROUTE ; Start 12/18/18 at 11:46; Stop 12/18/18 at 12:47; Status DC Cellulose (Surgicel Hemostat 4x8) 1 each STK-MED ONCE .ROUTE ; Start 12/18/18 at 11:46; Stop 12/18/18 at 12:47; Status DC Active Scripts Active [place] 5-325 Tablet (Acetaminophen/Hydrocodone Bitart) 1 Each Tablet 1 Tab PO Q8HRS Cyclobenzaprine Hcl 10 Mg Tablet 1 Tab PO TID Diclofenac Potassium 50 Mg Tablet 1 Tab PO BID Ondansetron Odt (Ondansetron) 4 Mg Tab.rapdis 1 Tab PO PRN Q6-8HRS Reported Pravastatin Sodium 40 Mg Tablet 40 Mg PO DAILY Phentermine Hcl 37.5 Mg Tablet 37.5 Mg PO DAILY Dexilant (Dexlansoprazole) 60 Mg Raza.mp 60 Mg PO DAILY Levothyroxine Sodium 100 Mcg Tablet 100 Mcg PO DAILY Meclizine Hcl 25 Mg Tablet 25 Mg PO PRN PRN Xanax (Alprazolam) 0.25 Mg Tablet 1 Tab PO PRN PRN Aldactone (Spironolactone) 100 Mg Tablet 100 Mg PO DAILY Vitals/I & O Vital Sign - Last 24 Hours 12/17/18 12/17/18 12/17/18 12/17/18 13:12 15:00 19:00 20:00 Temp 97.7 98.1 97.7 98.1 Pulse 94 96 Resp 18 18 B/P (MAP) 115/68 (84) 132/83 (99) Pulse Ox 94 92 94 O2 Delivery Nasal Cannula Nasal Cannula Nasal Cannula Nasal Cannula O2 Flow Rate 2.0 2.0 2.0 12/17/18 12/18/18 12/18/18 12/18/18 23:00 01:17 01:47 02:56 Temp 97.5 98.5 97.5 98.5 Pulse 97 98 Resp 18 22 16 18 B/P (MAP) 138/83 (101) 121/72 (88) Pulse Ox 96 91 O2 Delivery Nasal Cannula Room Air Room Air Nasal Cannula O2 Flow Rate 2.0 2.0 12/18/18 12/18/18 07:00 08:00 Temp 98.6 98.6 Pulse 98 Resp 18 B/P (MAP) 132/79 (96) Pulse Ox 93 O2 Delivery Nasal Cannula Nasal Cannula O2 Flow Rate 2.0 2.0 Intake and Output 12/17/18 12/17/18 12/18/18 15:00 23:00 07:00 Intake Total 0 ml 0 ml 150 ml Balance 0 ml 0 ml 150 ml WANDA WOLF MD December 18, 2018 13:00
[2018-12-18] MEDS ORDERED: SCOPOLAMINE 1.5MG PATCH. TD ONE ×2 (13:42→14:00)
[2018-12-18] MEDS ORDERED: fentaNYL PF VIAL 250 MCG/5 ML VIAL ONE (14:03)
[2018-12-18] MEDS ORDERED: KETOROLAC 30 MG/ML INJ FOR OR. INJ ONE (15:32)
[2018-12-18] MEDS ORDERED: SEVOFLURANE > 120 MINUTES. IH ONE (15:35)
[2018-12-18] MEDS ORDERED: HYDROCORTISONE SOD SUCC/PF 100 MG/2 ML VIAL. ONE (15:36)
--- NOTE | 2018-12-18 15:48 | PDOC4 ---
Operative Note Operative Note Date: 12/18/2018 Preoperative diagnosis: Acute acalculous cholecystitis Postoperative diagnosis: Same Procedure: Laparoscopic lysis of adhesions and cholecystectomy Specimen: Gallbladder bile for cultures Surgeon: Augustus Dictation: Patient is a 58-year-old female was mated to the hospital with right upper quadrant abdominal pain nausea vomiting elevated white count HIDA scan was performed which showed acute cholecystitis ultrasound did not show gallstones. Procedure of laparoscopic cholecystectomy was explained to the patient in detail risks benefits were all also discussed including bleeding infection injury to intra-abdominal contents possibly necessitating further or open operations alternatives to this procedure also discussed with the patient who seemed to understand gave both verbal and written consent to have the procedure performed. Patient was taken to the operating room placed in supine position general anesthesia was initiated once patient was asleep and intubated her abdomen was prepped and draped usual sterile fashion using ChloraPrep and area at the umbilicus was injected with quarter percent Marcaine with epinephrine incision was made with 11 blade scalpel the fascia was visualized grasped with a Kat clamp and a varies needle was placed within the abdomen creating pneumoperitoneum once this was complete 11 mm port was placed and a 5 mg camera was placed within the abdomen which was inspected was noted that the abdomen had dense and large amount of adhesions basically covering three quarters of the abdominal wall to the upper abdomen. There was enough room in the left lower quadrant to place a 5 mm port some of the adhesions were taken down with blunt dissection somewhat taken down with sono incision once a large area was opened several more 5 mm ports were placed to continue lysis of adhesions to allow access to the gallbladder lysis of adhesions took 90 minutes out of 120 minute procedure. Once enough adhesions were taken down to allow access to the liver the gallbladder was visualized adherent tissues to the gallbladder were taken down blunt sharp dissection down to the infundibulum which was grasped and retracted laterally the gallbladder was quite tense and so was aspirated with a large needle this bile was sent for culture. The cystic duct was visualized and using a 12 mm Hem-o-justin clip was placed proximally distally and the cystic duct was transected with Endo Ronald scissors. The gallbladder was taken off the liver using hook electrocautery and the sono incision. Placed in Endo Catch bag and removed from the umbilicus right upper quadrant was irrigated and suctioned dry a 19 [place] KENNEY drain was placed through 5 mm port brought out through another 5 mm port in the right lower abdomen this was sewn in place with a 2-0 silk suture. The drain was laid along the right gutter into the right gallbladder fossa. Pneumoperitoneum was reduced all ports removed the fascial defect at the umbilicus closed with [id number] Vicryl suture and skin was approximate all port sites for septic and a Monocryl Mastisol Steri-Strips and island dressings were applied. Patient was awakened and extubated in the operating room taken to recovery in stable condition all sponge instrument needle counts listed as correct estimate blood loss 60 mL. JADE MANCIA MD December 18, 2018 15:48
[2018-12-18 17:08] VITALS: BP 139/76
[2018-12-18 19:00] VITALS: BP 138/75
[2018-12-18 23:00] VITALS: BP 120/63
[2018-12-19] MEDS: HYDROmorphone 2 MG/ML VIAL IV PRN ×2 (00:29→21:32)
[2018-12-19 03:00] VITALS: BP 124/66
[2018-12-19 07:00] VITALS: BP 127/76
--- NOTE | 2018-12-19 08:17 | PDOC ---
SURGICAL PROGRESS NOTE Subjective Patient feeling better this morning less pain in the right upper quadrant no nausea or vomiting Vital Signs Vital Signs Date Time Temp Pulse Resp B/P (MAP) Pulse Ox O2 Delivery O2 Flow Rate FiO2 12/19/18 03:00 98.5 89 18 124/66 (85) 94 Nasal Cannula 2.0 98.5 I&O Intake and Output 12/19/18 06:59 Output Total 110 ml Balance -110 ml Drainage Total 50 ml Estimated Blood Loss 60 ml # Voids 3 PATIENT HAS A STOKES: No General: Alert, Oriented X3, Cooperative, mild distress Abdomen: Normal bowel sounds, Soft, Other (incisional tenderness wounds clean dry and intact KENNEY drain with bloody output no bile) Labs Laboratory Tests Test 12/17/18 13:50 12/18/18 04:00 Glucose (Fingerstick) 173 mg/dL (70-99) White Blood Count 31.9 x10^3/uL (4.0-11.0) Red Blood Count 5.66 x10^6/uL (3.50-5.40) Hemoglobin 15.1 g/dL (12.0-15.5) Hematocrit 47.7 % (36.0-47.0) Mean Corpuscular Volume 84 fL (79-100) Mean Corpuscular Hemoglobin 27 pg (25-35) Mean Corpuscular Hemoglobin Concent 32 g/dL (31-37) Red Cell Distribution Width 15.6 % (11.5-14.5) Platelet Count 225 x10^3/uL (140-400) Neutrophils (%) (Auto) 93 % (31-73) Lymphocytes (%) (Auto) 2 % (24-48) Monocytes (%) (Auto) 5 % (0-9) Eosinophils (%) (Auto) 0 % (0-3) Basophils (%) (Auto) 0 % (0-3) Neutrophils # (Auto) 29.7 x10^3uL (1.8-7.7) Lymphocytes # (Auto) 0.7 x10^3/uL (1.0-4.8) Monocytes # (Auto) 1.5 x10^3/uL (0.0-1.1) Eosinophils # (Auto) 0.0 x10^3/uL (0.0-0.7) Basophils # (Auto) 0.0 x10^3/uL (0.0-0.2) Segmented Neutrophils % 76 % (35-66) Band Neutrophils % 15 % (0-9) Lymphocytes % 3 % (24-48) Monocytes % 5 % (0-10) Eosinophils % 1 % (0-5) Toxic Vacuolation Slight Platelet Estimate Adequate (ADEQUATE) Sodium Level 141 mmol/L (136-145) Potassium Level 3.6 mmol/L (3.5-5.1) Chloride Level 102 mmol/L (98-107) Carbon Dioxide Level 25 mmol/L (21-32) Anion Gap 14 (6-14) Blood Urea Nitrogen 14 mg/dL (7-20) Creatinine 1.1 mg/dL (0.6-1.0) Estimated GFR (Cockcroft-Gault) 51.2 Glucose Level 115 mg/dL (70-99) Calcium Level 8.9 mg/dL (8.5-10.1) Problem List Problems Medical Problems: (1) Abdominal pain Status: Acute (2) Acute acalculous cholecystitis Status: Acute (3) Nausea and vomiting Status: Acute (4) Urinary tract infection Status: Acute Assessment/Plan Status post laparoscopic lysis of adhesions and cholecystectomy for gangrenous gallbladder Continue IV hydration and IV antibiotics JADE MANCIA MD December 19, 2018 08:17
[2018-12-19] MEDS: PANTOPRAZOLE IV PUSH 40 MG VIAL. IVP SCH (09:07)
[2018-12-19 11:00] VITALS: BP 150/82
[2018-12-19] MEDS ORDERED: oxyCODONE/APAP 5/325 1 TAB TABLET PO PRN (12:30)
--- NOTE | 2018-12-19 14:02 | PDOC ---
PROGRESS NOTES Subjective S/P lap familia and lysis of adhesions on 12/18/18 for gangrenous gallbladder, doing well post op Objective Afebrile General: comfortable, A&O Heart: RRR Lungs: CTA Abd: soft Ext: no edema Vital Signs Vital Signs Date Time Temp Pulse Resp B/P (MAP) Pulse Ox O2 Delivery O2 Flow Rate FiO2 12/19/18 11:00 88 18 150/82 (104) 92 Room Air 12/19/18 07:00 98.6 2.0 98.6 I & O Intake and Output 12/19/18 07:00 Output Total 110 ml Balance -110 ml Drainage Total 50 ml Estimated Blood Loss 60 ml # Voids 3 Assessment and Plan A/P: Acute acalculous gangrenous cholecystitis - POD #1, routine so far - add po pain meds Suzan VINCENT MD December 19, 2018 14:02
[2018-12-19 15:00] VITALS: BP 128/79
[2018-12-19] MEDS: IV NORMAL SALINE 1000ML BAG 1,000 ML IV SCH ×2 (17:00→22:45)
[2018-12-19 19:00] VITALS: BP 150/82
[2018-12-19] MEDS: LACTOBACILLUS RHAMNOSUS GG 1 CAPSULE. PO SCH (20:02)
[2018-12-19 22:50] VITALS: BP 144/75
[2018-12-20 03:00] VITALS: BP 141/75
[2018-12-20] MEDS: PANTOPRAZOLE IV PUSH 40 MG VIAL. IVP SCH (05:29)
[2018-12-20 05:34] LABS: BASO % 0 % (0-3); EOS # 0.2 x10^3/uL (0.0-0.7); EOS % 1 % (0-3); HEMATOCRIT 36.4 % (36.0-47.0); HEMOGLOBIN 12.1 g/dL (12.0-15.5); LYMPH # 0.8 x10^3/uL (1.0-4.8); LYMPH % 7 % (24-48); MEAN CORPUSCULAR HEMOGLOBIN 27 pg (25-35); MEAN CORPUSCULAR HGB CONC 33 g/dL (31-37); MEAN CORPUSCULAR VOLUME 82 fL (79-100); MONO # 0.4 x10^3/uL (0.0-1.1); MONO % 3 % (0-9); NEUT # 11.2 x10^3uL (1.8-7.7); NEUT % 89 % (31-73); PLATELET COUNT 222 x10^3/uL (140-400); RED BLOOD COUNT 4.42 x10^6/uL (3.50-5.40); RED CELL DISTRIBUTION WIDTH 15.9 % (11.5-14.5); WHITE BLOOD COUNT 12.6 x10^3/uL (4.0-11.0)
[2018-12-20 05:37] LABS: CALCIUM 8.3 mg/dL (8.5-10.1); CREATININE 0.9 mg/dL (0.6-1.0); GFR 64.5; POTASSIUM 3.3 mmol/L (3.5-5.1)
[2018-12-20 07:00] VITALS: BP 127/81
[2018-12-20] MEDS: LACTOBACILLUS RHAMNOSUS GG 1 CAPSULE. PO SCH (09:00)
--- NOTE | 2018-12-20 09:07 | PDOC ---
SURGICAL PROGRESS NOTE Subjective Patient felt much better today no pain tolerating diet Vital Signs Vital Signs Date Time Temp Pulse Resp B/P (MAP) Pulse Ox O2 Delivery O2 Flow Rate FiO2 12/20/18 03:00 97.5 73 18 141/75 (97) 94 Nasal Cannula 2.0 97.5 I&O Intake and Output 12/20/18 06:59 Intake Total 1360 ml Output Total 173 ml Balance 1187 ml Intake Oral 160 ml IV Total 1200 ml Drainage Total 173 ml # Voids 4 PATIENT HAS A STOKES: No General: Alert, Oriented X3, Cooperative, No acute distress Abdomen: Normal bowel sounds, Soft, No tenderness, Other (wounds clean dry and intact KENNEY drain intact with serosanguineous drainage no bile) Labs Laboratory Tests Test 12/20/18 04:25 White Blood Count 12.6 x10^3/uL (4.0-11.0) Red Blood Count 4.42 x10^6/uL (3.50-5.40) Hemoglobin 12.1 g/dL (12.0-15.5) Hematocrit 36.4 % (36.0-47.0) Mean Corpuscular Volume 82 fL (79-100) Mean Corpuscular Hemoglobin 27 pg (25-35) Mean Corpuscular Hemoglobin Concent 33 g/dL (31-37) Red Cell Distribution Width 15.9 % (11.5-14.5) Platelet Count 222 x10^3/uL (140-400) Neutrophils (%) (Auto) 89 % (31-73) Lymphocytes (%) (Auto) 7 % (24-48) Monocytes (%) (Auto) 3 % (0-9) Eosinophils (%) (Auto) 1 % (0-3) Basophils (%) (Auto) 0 % (0-3) Neutrophils # (Auto) 11.2 x10^3uL (1.8-7.7) Lymphocytes # (Auto) 0.8 x10^3/uL (1.0-4.8) Monocytes # (Auto) 0.4 x10^3/uL (0.0-1.1) Eosinophils # (Auto) 0.2 x10^3/uL (0.0-0.7) Basophils # (Auto) 0.0 x10^3/uL (0.0-0.2) Sodium Level 140 mmol/L (136-145) Potassium Level 3.3 mmol/L (3.5-5.1) Chloride Level 106 mmol/L (98-107) Carbon Dioxide Level 27 mmol/L (21-32) Anion Gap 7 (6-14) Blood Urea Nitrogen 14 mg/dL (7-20) Creatinine 0.9 mg/dL (0.6-1.0) Estimated GFR (Cockcroft-Gault) 64.5 Glucose Level 98 mg/dL (70-99) Calcium Level 8.3 mg/dL (8.5-10.1) Laboratory Tests Test 12/20/18 04:25 White Blood Count 12.6 x10^3/uL (4.0-11.0) Red Blood Count 4.42 x10^6/uL (3.50-5.40) Hemoglobin 12.1 g/dL (12.0-15.5) Hematocrit 36.4 % (36.0-47.0) Mean Corpuscular Volume 82 fL (79-100) Mean Corpuscular Hemoglobin 27 pg (25-35) Mean Corpuscular Hemoglobin Concent 33 g/dL (31-37) Red Cell Distribution Width 15.9 % (11.5-14.5) Platelet Count 222 x10^3/uL (140-400) Neutrophils (%) (Auto) 89 % (31-73) Lymphocytes (%) (Auto) 7 % (24-48) Monocytes (%) (Auto) 3 % (0-9) Eosinophils (%) (Auto) 1 % (0-3) Basophils (%) (Auto) 0 % (0-3) Neutrophils # (Auto) 11.2 x10^3uL (1.8-7.7) Lymphocytes # (Auto) 0.8 x10^3/uL (1.0-4.8) Monocytes # (Auto) 0.4 x10^3/uL (0.0-1.1) Eosinophils # (Auto) 0.2 x10^3/uL (0.0-0.7) Basophils # (Auto) 0.0 x10^3/uL (0.0-0.2) Sodium Level 140 mmol/L (136-145) Potassium Level 3.3 mmol/L (3.5-5.1) Chloride Level 106 mmol/L (98-107) Carbon Dioxide Level 27 mmol/L (21-32) Anion Gap 7 (6-14) Blood Urea Nitrogen 14 mg/dL (7-20) Creatinine 0.9 mg/dL (0.6-1.0) Estimated GFR (Cockcroft-Gault) 64.5 Glucose Level 98 mg/dL (70-99) Calcium Level 8.3 mg/dL (8.5-10.1) Problem List Problems Medical Problems: (1) Abdominal pain Status: Acute (2) Acute acalculous cholecystitis Status: Acute (3) Nausea and vomiting Status: Acute (4) Urinary tract infection Status: Acute Assessment/Plan Is post-laparoscopic cholecystectomy with lysis of adhesions for gangrenous gallbladder improving white count afebrile we will DC KENNEY drain okay to discharge home from surgical standpoint JADE MANCIA MD December 20, 2018 09:07
--- NOTE | 2018-12-20 09:08 | DISCH ---
DISCHARGE INSTRUCTIONS Condition on Discharge Condition on Discharge: Stable Activity After Discharge Activity Instructions for Disc: No restrictions Other activity instructions: no lifting more than 20 pounds for 2 weeks Diet after Discharge Diet after Discharge: Low Fat Wound Incision Care Other wound/incision instructi: ana rizzo starting today Contacting the [facility] after DC Call your doctor for: If your condition worsens Follow-Up Follow up with: Dr. Mancia in 2 weeks JADE MANCIA MD December 20, 2018 09:08
[2018-12-20] MEDS ORDERED: POTASSIUM CHLORIDE 10 MEQ TABLET.ER. PO ONE (09:30)
--- NOTE | 2018-12-20 09:33 | PDOC3 ---
Discharge Summary [facility] Date of Admission: December 17, 2018 Discharge Date: December 20, 2018 Admitting Diagnosis acute cholecystitis Final Diagnosis (1) Abdominal pain Status: Acute (2) Acute gangrenous cholecystitis Status: Acute (3) Nausea and vomiting Status: Acute (4) Urinary tract infection Status: Acute CONSULTS Augustus Procedures lap familia, lysis of adhesions Brief Hospital Course Ms. Knutson is a 58 old who presented with abdominal pain, nausea and vomiting and found to have acute gangrenous cholecystitis and taken to OR by Dr. Coffman for lap familia but he also had to spend 90 minutes lysing adhesions to get to it, no post op complications, she was also treated for a UTI but urine cul ture is still pending, she is passing flatus and her pain is controlled, her WBC went up to 31K but is now down to 12K. She will take 5 more days of metronidazole and levaquin, have Percocet 5/325 on hand #20 for pain and return to work in a week, f/u in 1-2 weeks. Drain is removed prior to discharge Disposition home CONDITION AT DISCHARGE: Improved, Stable Diet advance as tolerated Scheduled Cyclobenzaprine Hcl (Cyclobenzaprine Hcl), 1 TAB PO TID Dexlansoprazole (Dexilant), 60 MG PO DAILY, (Reported) Diclofenac Potassium (Diclofenac Potassium), 1 TAB PO BID Hydrocodone/Apap 5-325 ([place] 5-325 Tablet), 1 TAB PO Q8HRS Levothyroxine Sodium (Levothyroxine Sodium), 100 MCG PO DAILY, (Reported) Ondansetron (Ondansetron Odt), 1 TAB PO PRN Q6-8HRS Phentermine Hcl (Phentermine Hcl), 37.5 MG PO DAILY, (Reported) Pravastatin Sodium (Pravastatin Sodium), 40 MG PO DAILY, (Reported) Spironolactone (Aldactone), 100 MG PO DAILY, (Reported) Scheduled PRN Alprazolam (Xanax), 1 TAB PO PRN PRN for ANXIETY, (Reported) Meclizine Hcl (Meclizine Hcl), 25 MG PO PRN PRN for dizziness/meniere disease, (Reported) Follow Up 1-2 weeks Suzan VINCENT MD December 20, 2018 09:33
[2018-12-20 11:00] VITALS: BP 122/76
--- NOTE | 2018-12-20 15:18 | NUR ---
KENNEY drain was removed and stitches removed; site bandaged and teaching done on dressing changes; supplies sent with pt. Discharge teaching completed and pt has three prescriptions in hand. She states she has all of her personal belongings and understands her home medications and follow up instructions. IV site discontinued without difficulty. Pt was escorted out by staff via w/c. discharged to home with spouse.
[2018-12-21] MEDS ORDERED: PANTOPRAZOLE 40 MG TABLET.DR. PO SCH (07:30)
--- NOTE | 2018-12-22 15:06 | PATHOLOGY ---
[facility] Accession Number: [id number] . 01 Material submitted: . gallbladder - GALLBLADDER . 01 Clinical history: . . Cholecystitis . 02 Diagnosis: Gallbladder, cholecystectomy: - Cholesterolosis, focal. - Acute necrotizing and hemorrhagic (gangrenous) cholecystitis. . (JPM:mm; 12/22/2018) [facility]/12/22/2018 . 02 Comment: There are no calculi identified within the gallbladder lumen or specimen container. There is no evidence of malignancy. . (JPM:mm; 12/22/2018) . 02 Electronically signed: . Anibal Pearl MD, Pathologist NPI- [id number] . 01 Gross description: . The specimen is received in formalin labeled "[facility], [facility]" and consists of a previously opened, hurley-momin, ragged, and hemorrhagic gallbladder measuring 8.1 cm in length and up to 4.5 cm in diameter. The margin is inked black. The mucosa is green-brown, necrotic with yellow streaks and an average wall thickness of 0.2 cm. No calculi or masses are identified. Bag Bundler sections are submitted in A1-A2. (SD; 12/21/2018) SYU/SYU . 02 Pathologist provided ICD-10: K81.0 . 02 CPT . 681188 Specimen Comment: A courtesy copy of this report has been sent to Specimen Comment: [phone], , , . Specimen Comment: Report sent to ,DR WOLF,DR VINCENT / DR MISTRY Performed at: [address], [place], [place] [id number] MD Julien Amor MD Phone: [phone] Performed at: [address] [id number] MD Anibal Pearl MD Phone: [phone]
== END 2018-12-20 14:55 | disposition home or self-care (01) | DRG 418 ==
LOC: ER 00:21 → 4 NORTH 04:30
PROVIDERS: ADMIT Family Medicine; ATTEND Family Medicine
PROC: 0FN44ZZ Release Gallbladder, Percutaneous Endoscopic Approach (ICD-10-PCS; 2018-12-18)
PROC: 0FT44ZZ Resection of Gallbladder, Percutaneous Endoscopic Approach (ICD-10-PCS; principal; 2018-12-18 13:00)
DX: K81.0 Acute cholecystitis (principal); N39.0 Urinary tract infection, site not specified; Z68.42 Body mass index [BMI] 45.0-49.9, adult; K82.A1 Gangrene of gallbladder in cholecystitis; E78.00 Pure hypercholesterolemia, unspecified; K21.9 Gastro-esophageal reflux disease without esophagitis; I10 Essential (primary) hypertension; G89.29 Other chronic pain; Z96.659 Presence of unspecified artificial knee joint; E03.9 Hypothyroidism, unspecified; E78.5 Hyperlipidemia, unspecified; F41.0 Panic disorder [episodic paroxysmal anxiety]; K82.8 Other specified diseases of gallbladder; K59.00 Constipation, unspecified; K57.30 Diverticulosis of large intestine without perforation or abscess without bleeding; E66.01 Morbid (severe) obesity due to excess calories; G43.909 Migraine, unspecified, not intractable, without status migrainosus; Z98.51 Tubal ligation status; Z98.84 Bariatric surgery status; Z88.5 Allergy status to narcotic agent; Z88.2 Allergy status to sulfonamides; Z88.1 Allergy status to other antibiotic agents; Z91.041 Radiographic dye allergy status; Z82.5 Family history of asthma and other chronic lower respiratory diseases; Z82.49 Family history of ischemic heart disease and other diseases of the circulatory system; Z80.49 Family history of malignant neoplasm of other genital organs
CPT/HCPCS: 36415; 71046; 74176; 76700; 78227; 80048; 80053; 81001; 82962; 83690; 84484; 85007; 85025; 87071; 87075; 88304; 93005; A7015; A9537; C9113; J1100; J1170; J1720; J1885; J1956; J2001; J2405; J2704; J2710; J3010; J3480; J3490; J7030; J7120; Q9967; 99285-25

== ENCOUNTER → 2019-04-17 | Outpatient (CLI) | payer OTHER ==
--- NOTE | 2019-04-19 16:51 | RAD ---
DATE: 04/17/2019 EXAM: MAMMO ENEIDA SCREENING BILATERAL HISTORY: Routine screening COMPARISON: 12/17/2012, 02/09/2014, 03/30/2015, 04/03/2016, and 04/04/2017, 04/07/2018 mammographic exams This study was interpreted with the benefit of Computerized Aided Detection (CAD). Breast Density: HETERO The breast parenchyma is heterogenously dense, which could reduce sensitivity of mammography. Breast parenchyma level C. FINDINGS: Minimal benign calcifications are present. Multiple bilateral masses are identified without suspicious change. No distortion. IMPRESSION: Benign findings. BI-RADS CATEGORY: 1 NEGATIVE RECOMMENDED FOLLOW-UP: 12M 12 MONTH FOLLOW-UP PQRS compliance statement: Patient information was entered into a reminder system with a target due date in one year for the next mammogram. Mammography is a sensitive method for finding small breast cancers, but it does not detect them all and is not a substitute for careful clinical examination. A negative mammogram does not negate a clinically suspicious finding and should not result in delay in biopsying a clinically suspicious abnormality. "Our facility is accredited by the [employer] Mammography Program."
== END | disposition home or self-care (01) ==
LOC: MAMMO 09:06
PROVIDERS: ATTEND Family Medicine
DX: Z12.31 Encounter for screening mammogram for malignant neoplasm of breast (principal); N63.20 Unspecified lump in the left breast, unspecified quadrant; N63.10 Unspecified lump in the right breast, unspecified quadrant; N64.89 Other specified disorders of breast
CPT/HCPCS: 77063; 77067

== ENCOUNTER → 2019-10-08 | Day surgery (SDC) | payer OTHER ==
[~2019-10-08] MED LIST changes: +CHOL40003 PO; +LIDOCAINE 1%/EPI 1:100,000 20 ML VIAL. INJ ONE; +MECL-75 PO; -MECL25TA3 PO; -OMEP20CA10 PO; +OMEP20CA16 PO; +OMEP40CA45 PO; +TRAZ-118 PO; +VALS160T3 PO
[2019-10-08 11:59] VITALS: BP 115/54
--- NOTE | 2019-10-08 12:39 | PDOC4 ---
Operative Note Operative Note Date: 10/08/2019 Preoperative diagnosis: Left thigh mass Postoperative diagnosis: Same Procedure: Excision of mass Specimen: Thigh mass left side Surgeon: Augustus Dictation: Patient is 59-year-old female is had an enlarging mass in her left thigh that's been causing pain. Procedure of excision was explained to the patient detail risk benefits were also discussed including bleeding infection alternatives to this procedure also discussed with patient who seemed to understand and gave both verbal and written consent had the procedure performed per patient was taken to the minors room placed in the right lateral decubitus position her left thigh was prepped and draped usual sterile fashion using ChloraPrep. An area over the mass was injected with percent lidocaine with epinephrine. Once this was anesthetized incision was made with 15 blade scalpel and the mass which appeared to be a lipoma was excised sharply and sent for pathology the mass was 3 x 4 cm. The wound was then closed in a single layer of 4-0 subcuticular Monocryl Mastisol Steri-Strips and island dressing were applied . Patient tolerated procedure well was discharged home in stable condition. Estimated blood loss less than 5 mL JADE MANCIA MD Oct 08, 2019 12:39
--- NOTE | 2019-10-12 15:07 | PATHOLOGY ---
[facility] Accession Number: [id number] . 01 Material submitted: . thigh - MASS LEFT THIGH. Modifiers: left . 01 Clinical history: . Mass L thigh . 02 Diagnosis: Segments of adipose tissue, left thigh mass excision: - Lipoma. (JPM:[facility] 10/12/2019) QTP 10/12/2019 0835 Local . 02 Electronically signed: . Anibal Pearl MD, Pathologist NPI- [id number] . 01 Gross description: . The specimen is received in formalin, labeled "Eamon Alysa, mass left thigh" and consists of multiple irregular segments of yellow lobulated tissue measuring 6.8 x 3.8 x 2.0 cm in aggregate. Sectioning reveals homogeneous yellow cut surfaces with no gross lesions. Label Cutter tissue is submitted in A1-A2. (SDY; 10/11/2019) SYU/SYU 10/11/2019 1104 Local . 02 Pathologist provided ICD-10: D17.79 . 02 CPT . 405506 Specimen Comment: A courtesy copy of this report has been sent to [phone] Specimen Comment: [phone] Specimen Comment: Report sent to / DR VINCENT Performed at: 01 [facility] [address] [facility] [address], [place] [id number] MD Julien Amor MD Phone: [phone] Performed at: 02 [facility] [address] [place], [place] [id number] MD Anibal Pearl MD Phone: [phone]
== END ==
LOC: SURG 11:28
PROVIDERS: ATTEND Surgery
DX: R22.42 Localized swelling, mass and lump, left lower limb (principal); D17.24 Benign lipomatous neoplasm of skin and subcutaneous tissue of left leg; E66.9 Obesity, unspecified; E03.9 Hypothyroidism, unspecified; D64.9 Anemia, unspecified; I10 Essential (primary) hypertension; E78.00 Pure hypercholesterolemia, unspecified; K21.9 Gastro-esophageal reflux disease without esophagitis; K22.70 Barrett's esophagus without dysplasia; F41.9 Anxiety disorder, unspecified; F32.9 Major depressive disorder, single episode, unspecified; Z68.42 Body mass index [BMI] 45.0-49.9, adult; Z87.39 Personal history of other diseases of the musculoskeletal system and connective tissue; Z98.51 Tubal ligation status; Z85.828 Personal history of other malignant neoplasm of skin
CPT/HCPCS: 27337; J3490; 88304

== ENCOUNTER → 2019-12-30 | Outpatient (CLI) | payer OTHER ==
[2019-10-08 11:59] VITALS: BP 115/54
[~2019-12-30] MED LIST changes: -LIDOCAINE 1%/EPI 1:100,000 20 ML VIAL. INJ ONE
== END | disposition home or self-care (01) ==
LOC: LAB 16:15
PROVIDERS: ATTEND Family Medicine
DX: N30.91 Cystitis, unspecified with hematuria (principal)
CPT/HCPCS: 87086

== ENCOUNTER → 2020-01-21 | Outpatient (CLI) | payer OTHER ==
[2019-10-08 11:59] VITALS: BP 115/54
[2020-01-21 10:52] LABS: BASO # 0.1 x10^3/uL (0.0-0.2); BASO % 1 % (0-3); EOS # 0.1 x10^3/uL (0.0-0.7); EOS % 2 % (0-3); HEMOGLOBIN 14.4 g/dL (12.0-15.5); LYMPH # 1.3 x10^3/uL (1.0-4.8); LYMPH % 19 % (24-48); MEAN CORPUSCULAR HEMOGLOBIN 28 pg (25-35); MEAN CORPUSCULAR HGB CONC 33 g/dL (31-37); MEAN CORPUSCULAR VOLUME 83 fL (79-100); MONO # 0.5 x10^3/uL (0.0-1.1); MONO % 7 % (0-9); NEUT # 4.9 x10^3/uL (1.8-7.7); NEUT % 71 % (31-73); PLATELET COUNT 262 x10^3/uL (140-400); RED BLOOD COUNT 5.18 x10^6/uL (3.50-5.40); RED CELL DISTRIBUTION WIDTH 15.1 % (11.5-14.5); WHITE BLOOD COUNT 6.9 x10^3/uL (4.0-11.0)
[2020-01-21 11:27] LABS: ALBUMIN 3.3 g/dL (3.4-5.0); ALBUMIN/GLOBULIN RATIO 0.8 (1.0-1.7); CALCIUM 8.4 mg/dL (8.5-10.1); CREATININE 1.1 mg/dL (0.6-1.0); POTASSIUM 3.6 mmol/L (3.5-5.1); TOTAL BILIRUBIN 0.4 mg/dL (0.2-1.0); TOTAL PROTEIN 7.3 g/dL (6.4-8.2)
== END | disposition home or self-care (01) ==
LOC: LAB 10:33
PROVIDERS: ATTEND Family Medicine
DX: I10 Essential (primary) hypertension (principal); E55.9 Vitamin D deficiency, unspecified; E03.9 Hypothyroidism, unspecified; D50.9 Iron deficiency anemia, unspecified
CPT/HCPCS: 36415; 80053; 82306; 84443; 85025

== ENCOUNTER → 2020-02-16 | Outpatient (CLI) | payer OTHER ==
[2019-10-08 11:59] VITALS: BP 115/54
== END | disposition home or self-care (01) ==
LOC: SPEC 15:01
PROVIDERS: ATTEND Obstetrics & Gynecology
DX: Z01.419 Encounter for gynecological examination (general) (routine) without abnormal findings (principal)
CPT/HCPCS: 88175

== ENCOUNTER → 2020-03-17 | Outpatient (CLI) | payer OTHER ==
[2019-10-08 11:59] VITALS: BP 115/54
[~2020-03-17] MED LIST changes: +ASCO100019 PO; -ASCO10002 PO
--- NOTE | 2020-03-17 17:44 | RAD ---
Transabdominal and endovaginal pelvic ultrasound INDICATION: Ovarian cyst. COMPARISON: Abdomen pelvis CT of 10/26/2018 TECHNIQUE: Grayscale, color and spectral Doppler imaging of the pelvis was performed using transabdominal and endovaginal approaches. FINDINGS: Uterus measures 6.1 x 3.9 x 4.0 cm. There is a large calcified dorsal fundal fibroid that creates shadow artifact that slightly limits detail. The endometrial stripe measures 3 mm. Right ovary measures 3.0 x 3.0 x 1.7 cm and demonstrates normal blood flow. Left ovary measures 5.9 x 3.7 x 5.4 cm and contains a large simple cyst measuring 4.9 x 5.6 x 4.4 cm. No pelvic free fluid. IMPRESSION: 1. Normal blood flow to both ovaries with a large left ovarian cyst measuring 4.9 x 5.6 x 4.4 cm. This appears simple and not significantly changed in size compared with the CT exam where it measured 4.1 x 6.0 x 5.3 cm. 2. Myomatous uterus. Electronically signed by: Donta Forbes MD (03/17/2020 5:41 PM) [id number]
== END ==
LOC: US 16:09
PROVIDERS: ATTEND Family Medicine
DX: N83.202 Unspecified ovarian cyst, left side (principal); D25.9 Leiomyoma of uterus, unspecified
CPT/HCPCS: 76830; 76856

== ENCOUNTER → 2020-03-23 | Outpatient (CLI) | payer OTHER ==
[2019-10-08 11:59] VITALS: BP 115/54
== END | disposition home or self-care (01) ==
LOC: LAB 08:13
PROVIDERS: ATTEND Family Medicine
DX: E78.5 Hyperlipidemia, unspecified (principal)
CPT/HCPCS: 36415; 80061

== ENCOUNTER → 2020-03-23 | Outpatient (CLI) | payer OTHER ==
[2019-10-08 11:59] VITALS: BP 115/54
[2020-03-24 00:09] LABS: AFPT MARKER 3.3 ng/mL (0.0-8.3); ESTRADIOL LEVEL 39.8 pg/mL (.)
== END | disposition home or self-care (01) ==
LOC: LAB 08:17
PROVIDERS: ATTEND Obstetrics & Gynecology
DX: N83.209 Unspecified ovarian cyst, unspecified side (principal)
CPT/HCPCS: 82105; 82670; 83615; 84702; 86304

== ENCOUNTER → 2020-04-22 | Outpatient (CLI) | payer OTHER ==
[2019-10-08 11:59] VITALS: BP 115/54
--- NOTE | 2020-04-25 09:08 | RAD ---
DATE: 04/22/2020 9:59 AM EXAM: MAMMO ENEIDA SCREENING BILATERAL HISTORY: Screening COMPARISON: 04/17/2019, 04/07/2018 Bilateral CC and MLO views of the breasts were performed. Bilateral breast tomosynthesis was performed in CC and MLO projections. This study was interpreted with the benefit of Computerized Aided Detection (CAD). FINDINGS: Breast Density: HETERO The breast parenchyma Is heterogeneously dense, which could reduce sensitivity of mammography. Breast parenchyma level C Waxing and waning pattern of nodularity, compatible with benign cystic change. No suspicious masses, microcalcifications or architectural distortion is present to suggest malignancy in either breast. The visualized axillae are unremarkable. IMPRESSION: No mammographic evidence of malignancy. BI-RADS CATEGORY: 2 BENIGN FINDING(S) RECOMMENDED FOLLOW-UP: 12M 12 MONTH FOLLOW-UP Annual screening mammography is recommended, unless clinically indicated sooner based on symptoms or change in physical exam. PQRS compliance statement: Patient information was entered into a reminder system with a target due date for the next mammogram. Mammography is a sensitive method for finding small breast cancers, but it does not detect them all and is not a substitute for careful clinical examination. A negative mammogram does not negate a clinically suspicious finding and should not result in delay in biopsying a clinically suspicious abnormality. "Our facility is accredited by the [employer] Mammography Program."
== END | disposition home or self-care (01) ==
LOC: MAMMO 09:53
PROVIDERS: ATTEND Family Medicine
DX: Z12.31 Encounter for screening mammogram for malignant neoplasm of breast (principal)
CPT/HCPCS: 77063; 77067

== ENCOUNTER → 2020-08-18 | Outpatient (CLI) | payer OTHER ==
[2019-10-08 11:59] VITALS: BP 115/54
[~2020-08-18] MED LIST changes: -LACT1CAP29 PO; +LACT1CAP37 PO; -OMEP40CA45 PO; +OMEP40CA7 PO
== END ==
LOC: LAB 14:42
PROVIDERS: ATTEND Family Medicine
DX: E03.9 Hypothyroidism, unspecified (principal)
CPT/HCPCS: 36415; 84443

== ENCOUNTER → 2020-09-26 | Outpatient (CLI) | payer OTHER ==
[2019-10-08 11:59] VITALS: BP 115/54
[~2020-09-26] MED LIST changes: +LACT1CAP29 PO; -LACT1CAP37 PO; +OMEP40CA45 PO; -OMEP40CA7 PO
--- NOTE | 2020-09-26 17:38 | RAD ---
MRI STUDY OF THE LEFT UPPER EXTREMITY WITHOUT CONTRAST Clinical indications: Mass of the deltoid region. Pain. Status post vaccination. TECHNIQUE: Noncontrast MRI sequences of the upper left extremity and shoulder were performed in all 3 planes. Palpable mass was not marked. FINDINGS: No soft tissue mass of the subcutaneous adipose tissue or deltoid muscle is evident. No sig nificant T2 soft tissue or muscle edema is evident. There is a complete tear of the lateral aspect of the supraspinatus tendon of the rotator cuff at the attachment to the footplate of the greater tuber damion. Transverse dimension of this defect is 11 mm. The AP dimension is 15 mm. This is located anterio rly. Type III acromial process is seen. The acromial process is located inferiorly with respect to th e lateral aspect of the clavicle. There is mild degenerative spurring of the AC joint. These findings may impinge the acromial humeral space. Small amount of fluid is seen within the subdeltoid bursa as a result of the complete rotator cuff tear. There is a small round fluid collection seen just medial to the superior aspect of the glenoid labrum. No significant glenohumeral joint effusion is seen. Th is could represent a paralabral ganglion cyst in association with a labral tear of the shoulder. No m arrow infiltrative process or fracture or bone marrow edema is seen. IMPRESSION: No soft tissue mass or abscess is evident. Complete rotator cuff tear. Possible paralabral ganglion cyst seen just medial to the superior aspect of the glenoid labrum. This may be seen in association with a glenoid labral tear. This was not a dedicated MRI study of the lef t shoulder. Left shoulder MRI arthrogram may be helpful for further evaluation if clinically needed. Electronically signed by: Eligio Powers MD (09/26/2020 5:36 PM) [id number]
== END ==
LOC: MRI 14:43
PROVIDERS: ATTEND Family Medicine
DX: M75.122 Complete rotator cuff tear or rupture of left shoulder, not specified as traumatic (principal); T50.Z95A Adverse effect of other vaccines and biological substances, initial encounter; Y83.8 Other surgical procedures as the cause of abnormal reaction of the patient, or of later complication, without mention of misadventure at the time of the procedure; Y92.89 Other specified places as the place of occurrence of the external cause
CPT/HCPCS: 73218

== ENCOUNTER → 2020-10-09 | Outpatient (CLI) | payer OTHER ==
[2019-10-08 11:59] VITALS: BP 115/54
--- NOTE | 2020-10-09 11:07 | RAD ---
Exam Date: 10/09/2020 10:37 AM XR CERVICAL SPINE 2-3V Indication: Reason: NECK PAIN. / Spl. Instructions: / History: FINDINGS/ IMPRESSION: The cervical spine is visualized from C1 to T1 on the lateral view. There is mild levoconvex curvatur e of the cervical spine. There is straightening of the cervical spine on the lateral view without lorne dence of spondylolisthesis. The vertebral body heights are maintained without evidence of acute frac ture. Mild multilevel degenerative changes are present with mild disc space narrowing and small oste ophytes, most prominent at C5-C6. The atlantoaxial interval is within normal limits. The prevertebra l soft tissues are normal. Electronically signed by: Suleiman Noel MD (10/09/2020 11:05 AM) [id number]
== END ==
LOC: RAD 10:30
PROVIDERS: ATTEND Nurse Practitioner Gerontology
DX: M47.812 Spondylosis without myelopathy or radiculopathy, cervical region (principal); M25.78 Osteophyte, vertebrae; M48.02 Spinal stenosis, cervical region
CPT/HCPCS: 72040

== ENCOUNTER → 2020-12-08 | Outpatient (CLI) | payer OTHER ==
[2019-10-08 11:59] VITALS: BP 115/54
[~2020-12-08] MED LIST changes: +IRBE300T23 PO; -LACT1CAP29 PO; +LACT1CAP37 PO; -OMEP40CA45 PO; +OMEP40CA7 PO; +PHEN37.53 PO; +TOPI50TA8 PO
[2020-12-08 09:50] LABS: BASO # 0.1 x10^3/uL (0.0-0.2); BASO % 1 % (0-3); EOS # 0.2 x10^3/uL (0.0-0.7); EOS % 2 % (0-3); HEMATOCRIT 42.8 % (36.0-47.0); HEMOGLOBIN 14.1 g/dL (12.0-15.5); LYMPH # 1.5 x10^3/uL (1.0-4.8); LYMPH % 16 % (24-48); MEAN CORPUSCULAR HEMOGLOBIN 28 pg (25-35); MEAN CORPUSCULAR HGB CONC 33 g/dL (31-37); MEAN CORPUSCULAR VOLUME 86 fL (79-100); MONO # 0.6 x10^3/uL (0.0-1.1); MONO % 6 % (0-9); NEUT % 75 % (31-73); PLATELET COUNT 272 x10^3/uL (140-400); RED BLOOD COUNT 5.01 x10^6/uL (3.50-5.40); RED CELL DISTRIBUTION WIDTH 16.2 % (11.5-14.5); WHITE BLOOD COUNT 9.3 x10^3/uL (4.0-11.0)
== END ==
LOC: LAB 09:16
PROVIDERS: ATTEND Family Medicine
DX: D50.9 Iron deficiency anemia, unspecified (principal); R53.83 Other fatigue; E66.01 Morbid (severe) obesity due to excess calories
CPT/HCPCS: 36415; 82607; 83525; 83540; 83550; 85025

== ENCOUNTER → 2021-01-24 | Day surgery (SDC) | payer OTHER ==
[~2021-01-24] VITALS: Ht 156.2 cm; Wt 128.0 kg
[~2021-01-24] MED LIST changes: +IV RINGERS,LACTATED 1000ML 1,000 ML IV SCH; +PROPOFOL 10 MG/ML (20ML) VIAL. IV ONE
[2021-01-24 11:30] VITALS: BP 179/70
[2021-01-24 12:18] VITALS: BP 121/56
--- NOTE | 2021-01-25 17:43 | PATHOLOGY ---
[facility] Accession Number: [id number] . 01 Material submitted: . PART A: stomach - ANTRUM BIOPSY PART B: esophagus - DISTAL ESOPHAGUS FOR BARRETTS. Modifiers: distal . 01 Clinical history: . SALMON'S EGD . 02 Diagnosis: A. Gastric biopsy, antrum: - Chronic gastritis, mild. . B. Esophageal biopsies, distal esophagus: - Segments of mildly hyperplastic squamous esophageal mucosa. (JPM:monique; 01/25/2021) S 01/25/2021 1422 Local . 02 Comment: Sections of the gastric antral biopsy show congestion and mild chronic inflammation. A properly controlled immunoperoxidase stain for Helicobacter is negative for Helicobacter organisms. . Sections of the distal esophageal biopsy reveal segments of mildly hyperplastic squamous esophageal mucosa. There is no evidence of Salmon's change, dysplasia, or malignancy. (JPM:monique; 01/25/2021) . . Special stain performed: Immunoperoxidase stain for Helicobacter on A1 . 02 Electronically signed: . Anibal Pearl MD, Pathologist NPI- [id number] . 01 Gross description: . A. Received in formalin labeled "[place], [place] and antrum biopsy for H. pylori". Received is a momin-brown soft tissue fragment measuring 0.5 x 0.3 x 0.2 cm. The specimen is entirely submitted in cassette A1. . B. Received in formalin labeled "[facility] [place] and distal esophagus for Salmon's". Received are multiple hurley-momin soft tissue fragments ranging from 0.1-0.3 cm. The specimen is entirely submitted in cassette B1.(BLJ; 01/24/2021) BLJ/BLJ 01/24/20211956 Local . 02 Pathologist provided ICD-10: K29.50 . 02 CPT . 443044, 022049, W12518 Specimen Comment: A courtesy copy of this report has been sent to [phone] Specimen Comment: [id number] Specimen Comment: Report sent to / DR VINCENT Performed at: 01 [facility] [address], [place] [id number] MD Clarence Danielson MD Phone: [phone] Performed at: 02 [facility] [address] [place], [place] [id number] MD Anibal eParl MD Phone: [phone]
== END | disposition home or self-care (01) ==
LOC: ENDOS 10:57
PROVIDERS: ATTEND Surgery
DX: K22.70 Barrett's esophagus without dysplasia (principal); K29.50 Unspecified chronic gastritis without bleeding; K31.89 Other diseases of stomach and duodenum; I10 Essential (primary) hypertension; E78.00 Pure hypercholesterolemia, unspecified; E66.9 Obesity, unspecified; K21.9 Gastro-esophageal reflux disease without esophagitis; M19.90 Unspecified osteoarthritis, unspecified site; F41.9 Anxiety disorder, unspecified; F32.9 Major depressive disorder, single episode, unspecified; E03.9 Hypothyroidism, unspecified; Z85.828 Personal history of other malignant neoplasm of skin; Z90.49 Acquired absence of other specified parts of digestive tract; Z98.51 Tubal ligation status; Z98.890 Other specified postprocedural states; Z79.899 Other long term (current) drug therapy; Z88.1 Allergy status to other antibiotic agents; Z88.5 Allergy status to narcotic agent; Z88.2 Allergy status to sulfonamides; Z91.041 Radiographic dye allergy status; Z88.8 Allergy status to other drugs, medicaments and biological substances
CPT/HCPCS: 43239; 88305; 88342; J2704

== ENCOUNTER → 2021-01-31 | Outpatient (CLI) | payer OTHER ==
[2021-01-24 12:18] VITALS: BP 121/56
[~2021-01-31] MED LIST changes: -IV RINGERS,LACTATED 1000ML 1,000 ML IV SCH; -PROPOFOL 10 MG/ML (20ML) VIAL. IV ONE
--- NOTE | 2021-02-01 14:02 | CARD ---
MR#: [id number] Date of Study: 01/31/2021 Ordering Physician: ADRIANA SHANNON, Referring Physician: ADRIANA SHANNON, Tech: Maddi Rucker [facility] APPROVED REPORT EXAM: Two-dimensional and M-mode echocardiogram with Doppler and color Doppler. Other Information Quality : Technically LimitedHR: 79bpm Rhythm : NSR INDICATION RISK FACTORS Hypertension Obesity 2D DIMENSIONS RVDd3.3 (2.9-3.5cm)Left Atrium(2D)3.5 (1.6-4.0cm) IVSd0.9 (0.7-1.1cm)Aortic Root(2D)3.2 (2.0-3.7cm) LVDd4.4 (3.9-5.9cm)LVOT Diameter2.2 (1.8-2.4cm) PWd1.0 (0.7-1.1cm)LVDs2.8 (2.5-4.0cm) FS (%) 35.1 %SV55.7 ml LVEF(%)64.6 (>50%) Aortic Valve AoV Peak Ruslan.159.9cm/sAoV VTI36.1cm AO Peak GR.10.2mmHgLVOT Peak Ruslan.116.0cm/s AO Mean GR.5mmHgAVA (VMAX)2.74cm2 Mitral Valve MV E Tgzfhczo72.9cm/sMV DECEL ZJKV505lm MV A Zcanxadt83.4cm/sE/A Ratio0.8 LEFT VENTRICLE The left ventricle is normal size. There is normal left ventricular wall thickness. The left ventricu lar systolic function is normal and the ejection fraction is within normal range. Estimated ejection fraction 60-65%. There is normal LV segmental wall motion. Tissue Doppler imaging reveals mild left v entricular diastolic dysfunction. No left ventricle thrombus noted on this study. RIGHT VENTRICLE The right ventricle is normal size. There is normal right ventricular wall thickness. The right ventr icular systolic function is normal. ATRIA The left atrium size is normal. The right atrium size is normal. The interatrial septum is intact wit h no evidence for an atrial septal defect or patent foramen ovale as noted on 2-D or Doppler imaging. AORTIC VALVE The aortic valve is normal in structure and function. Doppler and Color Flow revealed no significant aortic regurgitation. There is no significant aortic valvular stenosis. MITRAL VALVE The mitral valve is thickened but opens well. There is no evidence of mitral valve prolapse. There is no mitral valve stenosis. Doppler and Color Flow revealed no mitral valve regurgitation noted. TRICUSPID VALVE The tricuspid valve is normal in structure and function. Doppler and Color Flow revealed no tricuspid valve regurgitation noted. There is no tricuspid valve prolapse or vegetation. PULMONIC VALVE Doppler and Color Flow revealed no pulmonic valvular regurgitation. There is no pulmonic valvular abdi nosis. GREAT VESSELS The aortic root is normal in size. The ascending aorta is normal in size. The IVC is normal in size a nd collapses >50% with inspiration. PERICARDIAL EFFUSION There is no evidence of significant pericardial effusion. Critical Notification Critical Value: No <Conclusion> The left ventricular systolic function is normal and the ejection fraction is within normal range. E stimated ejection fraction 60-65%. There is normal LV segmental wall motion. Signed by : Ceasar Koroma, Electronically Approved : 02/01/2021 14:02:17
== END ==
LOC: ECHO 14:57
PROVIDERS: ATTEND Internal Medicine Cardiovascular Disease
DX: I05.8 Other rheumatic mitral valve diseases (principal)
CPT/HCPCS: 93306

== ENCOUNTER → 2021-04-26 | Outpatient (CLI) | payer OTHER ==
[2021-01-24 12:18] VITALS: BP 121/56
[~2021-04-26] MED LIST changes: -PHEN37.5 PO; +PHEN37.59 PO
--- NOTE | 2021-04-26 16:28 | RAD ---
EXAM: Bilateral digital screening mammogram with tomosynthesis. HISTORY: 61-year-old female presents for screening mammography. TECHNIQUE: Full-field digital craniocaudal and mediolateral oblique 2D and 3D tomosynthesis images of both breasts are obtained for evaluation. Computer aided detection was applied. COMPARISON: 04/22/2020 BREAST PARENCHYMAL DENSITY: Level C - Heterogeneously dense. FINDINGS: There is no new suspicious mass, microcalcification or region of architectural distortion. There are extensive circumscribed nodular densities throughout both breasts, the multiplicity and con figuration of which favors a benign cystic etiology. These are not significantly changed compared to the prior study. There are multiple benign-appearing microcalcifications. IMPRESSION: BI-RADS Category 2: Benign finding(s). RECOMMENDATION: Annual mammography is recommended. If your mammogram demonstrates that you have dense breast tissue, which could hide abnormalities, and if you have other risk factors for breast cancer that have been identified, you might benefit from s upplemental screening tests that may be suggested by your ordering physician. Dense breast tissue, i n and of itself, is a relatively common condition. This information is not provided to cause undue c oncern, but rather to raise your awareness and to promote discussion with your physician regarding th e presence of other risk factors, in addition to dense breast tissue. A report of your mammography re sults will be sent to you and your physician. You should contact your physician if you have any ques tions or concerns regarding this report. Mammography is a sensitive method for finding small breast cancers, but it does not detect them all a nd is not a substitute for careful clinical examination. A negative mammogram does not negate a clin ically suspicious finding and should not result in delay in biopsying a clinically suspicious abnorma lity. PQRS compliance statement - Patient information was entered into a reminder system with a target due date for the next mammogram. "Our facility is accredited by the [employer] Mammography Program." Electronically signed by: Alana Sandhu MD (04/26/2021 4:25 PM) [id number]
== END ==
LOC: MAMMO 15:17
PROVIDERS: ATTEND Family Medicine
DX: Z12.31 Encounter for screening mammogram for malignant neoplasm of breast (principal); N63.20 Unspecified lump in the left breast, unspecified quadrant; N63.10 Unspecified lump in the right breast, unspecified quadrant
CPT/HCPCS: 77063; 77067